=== PATIENT | female | born 1960 | race Caucasian/White ===

== ENCOUNTER 2018-03-19 12:44 | Inpatient (IN) | payer MEDICARE, MEDICAID ==
[2018-03-19] MEDS ORDERED: Ondansetron 4 MG Tab.DIS PO PRN (13:34)
[2018-03-19] MEDS ORDERED: Sodium Chloride 0.9% 10 ML Syringe FLUSH PRN (13:34)
[2018-03-19] MEDS ORDERED: LORazepam 1 MG Tab PO PRN (13:42)
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
[2018-03-19] MEDS: Piperacillin/Tazobactam/Dext 3.375 GM in Premix Bag 1 BAG IV SCH ×2 (14:39→19:22)
[2018-03-19] MEDS: Nicotine 14 MG/24 Hr Patch TRDERM SCH (14:45)
[2018-03-19] MEDS: Gabapentin 300 MG Cap PO SCH ×2 (14:46→21:21)
[2018-03-19] MEDS: Sodium Chloride 0.9% 1,000 ML IV SCH ×2 (14:49→23:39)
[2018-03-19] MEDS: oxyCODONE 5 MG Tab PO PRN ×3 (14:56→23:44)
[2018-03-19] MEDS: Pantoprazole 40 MG Tab.CR PO SCH (16:08)
[2018-03-19] MEDS: Methocarbamol 500 MG Tab PO SCH ×2 (16:08→21:21)
[2018-03-20] MEDS: Piperacillin/Tazobactam/Dext 3.375 GM in Premix Bag 1 BAG IV SCH ×4 (03:02→19:43)
[2018-03-20] MEDS: oxyCODONE 5 MG Tab PO PRN ×4 (04:24→19:45)
[2018-03-20] MEDS: Methocarbamol 500 MG Tab PO SCH ×4 (06:18→22:01)
[2018-03-20] MEDS: Sodium Chloride 0.9% 1,000 ML IV SCH ×2 (07:57→19:44)
[2018-03-20] MEDS: Pantoprazole 40 MG Tab.CR PO SCH ×2 (07:59→17:35)
[2018-03-20] MEDS: Nicotine 14 MG/24 Hr Patch TRDERM SCH (07:59)
[2018-03-20] MEDS: Thiamine 100 MG Tab PO SCH (08:00)
[2018-03-20] MEDS: Gabapentin 300 MG Cap PO SCH ×3 (08:00→22:01)
[2018-03-20] MEDS: Magnesium Sulfate/Water 2 GM in Premix Bag 1 BAG IV SCH ×2 (10:25→17:34)
--- NOTE | 2018-03-20 10:51 | PCM.PN ---
- General Info Date of Service: 03/20/18 Subjective Update: there were no acute events overnight following admission. Patient continues to report mild to moderate generalized abdominal pain. She had some low-grade fevers. She has not been passing much urine with catheterization. Urine continues to be dark. Urine culture is growing a gram-negative khadra. She reports an episode of black stool yesterday. Hepatic panel numbers have improved from yesterday. Functional Status: Reports: Pain Controlled - Patient Data Vitals - Most Recent: Last Vital Signs Temp 37.3 C 03/20/18 07:32 Pulse 86 03/20/18 07:32 Resp 16 03/20/18 07:32 BP 126/67 03/20/18 07:32 Pulse Ox 96 03/20/18 07:32 Weight - Most Recent: 73.085 kg I&O - Last 24 Hours: Intake & Output 03/19/18 03/20/18 03/20/18 22:59 06:59 14:59 Intake Total 1665 1519 Balance 1665 1519 Lab Results Last 24 Hours: Laboratory Results - last 24 hr 03/20/18 03/20/18 Range/Units 05:29 05:29 WBC 3.4 L (4.5-11.0) K/uL RBC 2.70 L (3.30-5.50) M/uL Hgb 9.0 L (12.0-15.0) g/dL Hct 28.4 L (36.0-48.0) % MCV 105 H (80-98) fL MCH 33 H (27-31) pg MCHC 32 (32-36) % Plt Count 70 L (150-400) K/uL Sodium 137 L (140-148) mmol/L Potassium 3.8 (3.6-5.2) mmol/L Chloride 104 (100-108) mmol/L Carbon Dioxide 24 (21-32) mmol/L Anion Gap 12.8 (5.0-14.0) mmol/L BUN 10 (7-18) mg/dL Creatinine 1.6 H (0.6-1.0) mg/dL Est Cr Clr Drug Dosing 36.75 mL/min Estimated GFR (MDRD) 33 L (>60) Glucose 116 H (74-106) mg/dL Calcium 8.3 L (8.5-10.1) mg/dL Magnesium 1.6 L (1.8-2.4) mg/dL Total Bilirubin 1.9 H D (0.2-1.0) mg/dL AST 76 H D (15-37) U/L ALT 36 D (12-78) U/L Alkaline Phosphatase 360 H D (46-116) U/L Total Protein 6.2 L (6.4-8.2) g/dL Albumin 1.8 L (3.4-5.0) g/dL Globulin 4.4 H (2.3-3.5) g/dL Albumin/Globulin Ratio 0.4 L (1.2-2.2) Ry Results Last 24 Hours: Microbiology 03/19/18 17:00 Urine Culture - Preliminary Urine, Catheterized Med Orders - Current: Current Medications Acetaminophen (Tylenol) 650 mg PO Q4H PRN PRN Reason: Pain (Mild 1-3)/fever Gabapentin (Neurontin) 600 mg PO TID [facility] Last Admin: 03/20/18 08:00 Dose: 600 mg Piperacillin/Tazobactam/ (Dextrose 3.375 gm/ Premix) 50 mls @ 100 mls/hr IV Q6H [facility] Last Admin: 03/20/18 08:20 Dose: 100 mls/hr Sodium Chloride (Normal Saline) 1,000 mls @ 125 mls/hr IV ASDIRECTED [facility] Last Admin: 03/20/18 07:57 Dose: 125 mls/hr Magnesium Sulfate 2 gm/ Premix 50 mls @ 25 mls/hr IV Q6H [facility] Stop: 03/20/18 17:59 Last Admin: 03/20/18 10:25 Dose: 25 mls/hr Lorazepam (Ativan) 1 mg PO BEDTIME PRN PRN Reason: Anxiety Methocarbamol (Robaxin) 500 mg PO QID [facility] Last Admin: 03/20/18 10:25 Dose: 500 mg Nicotine (Habitrol) 14 mg TRDERM DAILY [facility] Last Admin: 03/20/18 07:59 Dose: 14 mg Ondansetron HCl (Zofran Odt) 4 mg PO Q6H PRN PRN Reason: Nausea able to take PO Oxycodone HCl (Oxycodone) 5 mg PO Q4H PRN PRN Reason: Pain (moderate 4-6) Last Admin: 03/20/18 08:20 Dose: 5 mg Pantoprazole Sodium (Protonix) 40 mg PO BIDAC [facility] Last Admin: 03/20/18 07:59 Dose: 40 mg Sodium Chloride (Saline Flush) 10 ml FLUSH ASDIRECTED PRN PRN Reason: Keep Vein Open Thiamine HCl (Vitamin B-1) 100 mg PO DAILY [facility] Last Admin: 03/20/18 08:00 Dose: 100 mg - Exam Quality Assessment: No: Supplemental Oxygen General: Alert, Oriented, Cooperative, No Acute Distress Lungs: Normal Respiratory Effort Cardiovascular: Regular Rate, Regular Rhythm GI/Abdominal Exam: Soft, No Distention, Tender Extremities: No Pedal Edema Psy/Mental Status: Alert, Normal Affect - Problem List & Annotations (1) Complicated urinary tract infection SNOMED Code(s): 44562110 Code(s): N39.0 - URINARY TRACT INFECTION, SITE NOT SPECIFIED Status: Acute Current Visit: Yes (2) Neurogenic bladder SNOMED Code(s): 956229752 Code(s): N31.9 - NEUROMUSCULAR DYSFUNCTION OF BLADDER, UNSPECIFIED Status: Chronic Current Visit: Yes (3) CKD (chronic kidney disease), stage III SNOMED Code(s): 675143701 Code(s): N18.3 - CHRONIC KIDNEY DISEASE, STAGE 3 (MODERATE) Status: Chronic Current Visit: Yes (4) Chronic pain syndrome SNOMED Code(s): 248859272 Code(s): G89.4 - CHRONIC PAIN SYNDROME Status: Chronic Current Visit: No (5) Tobacco dependence SNOMED Code(s): 07247413 Code(s): F17.200 - NICOTINE DEPENDENCE, UNSPECIFIED, UNCOMPLICATED Status: Chronic Current Visit: No (6) Bariatric surgery status SNOMED Code(s): 659749492, 976754453, 271732601 Code(s): Z98.84 - BARIATRIC SURGERY STATUS Status: Chronic Current Visit : No - Problem List Review Problem List Initiated/Reviewed/Updated: Yes - My Orders Last 24 Hours: My Active Orders 03/19/18 13:34 Patient Status [ADT] Routine Oxygen Therapy [RC] PRN Up ad Fartun [RC] ASDIRECTED VTE/DVT Education [RC] Per Unit Routine Vital Signs [RC] Q4H Acetaminophen [Tylenol] 650 mg PO Q4H PRN Ondansetron [Zofran ODT] 4 mg PO Q6H PRN Sodium Chloride 0.9% [Saline Flush] 10 ml FLUSH ASDIRECTED PRN oxyCODONE 5 mg PO Q4H PRN Peripheral IV Insertion Adult [OM.PC] Routine VTE Pharmacological Contraindications [AST] Per Unit Routine Resuscitation Status Routine 03/19/18 13:35 Intake and Output [RC] QSHIFT Notify Provider Vital Signs [RC] ASDIRECTED 03/19/18 13:36 Sequential Compression Device [OM.PC] Per Unit Routine 03/19/18 13:37 Peripheral IV Care [RC] . DIRECTED 03/19/18 13:42 LORazepam [Ativan] 1 mg PO BEDTIME PRN 03/19/18 13:45 Sodium Chloride 0.9% [Normal Saline] 1,000 ml IV ASDIRECTED 03/19/18 14:00 Gabapentin [Neurontin] 600 mg PO TID Nicotine [Habitrol] 14 mg TRDERM DAILY Piperacillin/Tazobactam/Dext [Zosyn in Dextrose Iso-Osmotic 3.375 GM] 3.375 gm Premix Bag 1 bag IV Q6H 03/19/18 16:00 Methocarbamol [Robaxin] 500 mg PO QID 03/19/18 16:30 Pantoprazole [ProTONIX] 40 mg PO BIDAC 03/19/18 17:00 CULTURE URINE [RM] Routine 03/19/18 Dinner Regular Diet [DIET] 03/20/18 09:00 Thiamine [Vitamin B-1] 100 mg PO DAILY 03/20/18 10:00 Magnesium Sulfate/Water [Magnesium Sulfate 2 GM in Water 50 ML] 2 gm Premix Bag 1 bag IV Q6H 03/20/18 10:47 FERRITIN [CHEM] Routine IRON/TIBC [CHEM] Routine 03/20/18 11:00 Sodium Chloride 0.9% [Normal Saline] 1,000 ml IV ASDIRECTED 03/21/18 05:00 BASIC METABOLIC PANEL,BMP [CHEM] Timed CBC W/O DIFF,HEMOGRAM [HEME] Timed (1) - Plan Plan:: ASSESSMENT AND PLAN - Complicated urinary tract infection - history of neurogenic bladder requiring scheduled straight catheterizations. low-grade fevers overnight. Urine culture growing a gram-negative rods with identification pending. No evidence for sepsis. -Pip/Tazo -Urine culture -Gentle IV fluids -Pain control -continue scheduled straight catheterization Elevated bilirubin with ascites - CT scan showed a fatty liver but I suspect there may be a component of cirrhosis with ascites and abnormal liver functions. I don't believe these are an acute change in probably have slowly worsened over the past year since they were last checked. She has thrombocytopenia which could be related to chronic liver disease. I have a strong suspicion this is either related to fatty liver disease versus previous heavy alcohol use versus both. -iron level and ferritin to further evaluate anemia -Right upper quadrant ultrasound once pain has improved, maybe tomorrow -Repeat labs in the morning Stage III chronic kidney disease - solitary left kidney after right kidney was removed because of severe infection. -continue IV fluids and repeat labs in the morning Chronic pain syndrome - current home regimen is not controlling pain efficiently. -Oxycodone for moderate pain -Acetaminophen for mild pain -Continue other home medications Tobacco dependence - patient is interested in a nicotine patch. -Encourage cessation -Nicotine patch Maintenance issues - - DVT prophylaxis - mechanical with thrombocytopenia - GI prophylaxis - twice daily proton pump inhibitor - Nutrition - regular diet with soft and bland food choices - Bhat catheter - patient will self catheter several times daily Disposition - I would anticipate discharge to home after the hospital stay Peyman Ybarra M.D.
[2018-03-20] MEDS ORDERED: Sodium Ferric Gluconate Cmplex 250 MG in Sodium Chloride 0.9% 100 ML IV ONE (13:00)
[2018-03-20] MEDS: Acetaminophen 325 MG Tab PO PRN (19:45)
[2018-03-20] MEDS: Melatonin 3 MG Tab PO SCH (22:01)
[2018-03-21] MEDS: Acetaminophen 325 MG Tab PO PRN (02:04)
[2018-03-21] MEDS: oxyCODONE 5 MG Tab PO PRN ×5 (02:04→23:53)
[2018-03-21] MEDS: Piperacillin/Tazobactam/Dext 3.375 GM in Premix Bag 1 BAG IV SCH ×3 (02:04→13:30)
[2018-03-21] MEDS: Methocarbamol 500 MG Tab PO SCH ×4 (05:32→21:10)
[2018-03-21] MEDS: Sodium Chloride 0.9% 1,000 ML IV SCH ×2 (05:33→17:03)
[2018-03-21] MEDS: Pantoprazole 40 MG Tab.CR PO SCH ×2 (07:22→15:29)
[2018-03-21] MEDS: Nicotine 14 MG/24 Hr Patch TRDERM SCH (09:09)
[2018-03-21] MEDS: Gabapentin 300 MG Cap PO SCH ×3 (09:10→21:10)
[2018-03-21] MEDS: Thiamine 100 MG Tab PO SCH (09:10)
--- NOTE | 2018-03-21 12:05 | PCM.PN ---
- General Info Date of Service: 03/21/18 Subjective Update: There were no acute events overnight. The patient continues to endorse generalized abdominal pain which is slightly better than yesterday. She did not have any fevers overnight. She has some nausea this morning. No complaints of shortness of breath. She is fatigued. Urine culture grew out Klebsiella which was pansensitive. Functional Status: Reports: Pain Controlled, Tolerating Diet - Review of Systems General: Reports: Fever Gastrointestinal: Reports: Abdominal Pain, Nausea - Patient Data Vitals - Most Recent: Last Vital Signs Temp 36.4 C 03/21/18 10:48 Pulse 81 03/21/18 10:48 Resp 16 03/21/18 10:48 BP 123/63 03/21/18 10:48 Pulse Ox 97 03/21/18 10:48 Weight - Most Recent: 73.085 kg I&O - Last 24 Hours: Intake & Output 03/20/18 03/21/18 03/21/18 22:59 06:59 14:59 Intake Total 1170 2159 Balance 1170 2159 Lab Results Last 24 Hours: Laboratory Results - last 24 hr 03/21/18 03/21/18 Range/Units 05:38 05:38 WBC 3.3 L (4.5-11.0) K/uL RBC 2.57 L (3.30-5.50) M/uL Hgb 8.7 L (12.0-15.0) g/dL Hct 27.1 L (36.0-48.0) % MCV 105 H (80-98) fL MCH 34 H (27-31) pg MCHC 32 (32-36) % Plt Count 64 L (150-400) K/uL Sodium 136 L (140-148) mmol/L Potassium 3.1 L (3.6-5.2) mmol/L Chloride 102 (100-108) mmol/L Carbon Dioxide 25 (21-32) mmol/L Anion Gap 12.1 (5.0-14.0) mmol/L BUN 9 (7-18) mg/dL Creatinine 1.5 H (0.6-1.0) mg/dL Est Cr Clr Drug Dosing 39.20 mL/min Estimated GFR (MDRD) 36 L (>60) Glucose 93 (74-106) mg/dL Calcium 7.9 L (8.5-10.1) mg/dL Ry Results Last 24 Hours: Microbiology 03/19/18 17:00 Urine Culture - Final Urine, Catheterized Klebsiella Pneumonia Ss Pneumo Med Orders - Current: Current Medications Acetaminophen (Tylenol) 650 mg PO Q4H PRN PRN Reason: Pain (Mild 1-3)/fever Last Admin: 03/21/18 02:04 Dose: 650 mg Cephalexin (Keflex) 500 mg PO BID [facility] Gabapentin (Neurontin) 600 mg PO TID [facility] Last Admin: 03/21/18 09:10 Dose: 600 mg Piperacillin/Tazobactam/ (Dextrose 3.375 gm/ Premix) 50 mls @ 100 mls/hr IV Q6H [facility] Stop: 03/21/18 16:00 Last Admin: 03/21/18 07:22 Dose: 100 mls/hr Sodium Chloride (Normal Saline) 1,000 mls @ 100 mls/hr IV ASDIRECTED [facility] Last Admin: 03/21/18 05:33 Dose: 100 mls/hr Potassium Chloride 20 meq/Lidocaine HCl 2 ml/ Sodium Chloride 112 mls @ 50 mls/ hr IV Q2H [facility] Stop: 03/21/18 16:14 Lorazepam (Ativan) 1 mg PO BEDTIME PRN PRN Reason: Anxiety Melatonin (Melatonin) 9 mg PO BEDTIME [facility] Last Admin: 03/20/18 22:01 Dose: Not Given Methocarbamol (Robaxin) 500 mg PO QID [facility] Last Admin: 03/21/18 09:10 Dose: 500 mg Nicotine (Habitrol) 14 mg TRDERM DAILY [facility] Last Admin: 03/21/18 09:09 Dose: 14 mg Ondansetron HCl (Zofran Odt) 4 mg PO Q6H PRN PRN Reason: Nausea able to take PO Oxycodone HCl (Oxycodone) 5 mg PO Q4H PRN PRN Reason: Pain (moderate 4-6) Last Admin: 03/21/18 07:24 Dose: 5 mg Pantoprazole Sodium (Protonix) 40 mg PO BIDAC [facility] Last Admin: 03/21/18 07:22 Dose: 40 mg Sodium Chloride (Saline Flush) 10 ml FLUSH ASDIRECTED PRN PRN Reason: Keep Vein Open Thiamine HCl (Vitamin B-1) 100 mg PO DAILY [facility] Last Admin: 03/21/18 09:10 Dose: 100 mg Discontinued Medications Sodium Chloride (Normal Saline) 1,000 mls @ 125 mls/hr IV ASDIRECTED [facility] Last Admin: 03/20/18 07:57 Dose: 125 mls/hr Magnesium Sulfate 2 gm/ Premix 50 mls @ 25 mls/hr IV Q6H [facility] Stop: 03/20/18 17:59 Last Admin: 03/20/18 17:34 Dose: 25 mls/hr Ferric Sodium Gluconate Complex 250 mg/ Sodium Chloride 120 mls @ 50 mls/hr IV ONETIME ONE Stop: 03/20/18 15:23 Last Admin: 03/20/18 13:16 Dose: 50 mls/hr - Exam Quality Assessment: No: Supplemental Oxygen General: Alert, Oriented, Cooperative, No Acute Distress Lungs: Normal Respiratory Effort Cardiovascular: Regular Rate, Regular Rhythm GI/Abdominal Exam: Soft, Distended, Tender Extremities: No Pedal Edema Skin: Warm, Dry Psy/Mental Status: Alert, Normal Affect - Problem List & Annotations (1) Complicated urinary tract infection SNOMED Code(s): 96361277 Code(s): N39.0 - URINARY TRACT INFECTION, SITE NOT SPECIFIED Status: Acute Current Visit: Yes (2) Neurogenic bladder SNOMED Code(s): 894867544 Code(s): N31.9 - NEUROMUSCULAR DYSFUNCTION OF BLADDER, UNSPECIFIED Status: Chronic Current Visit: Yes (3) CKD (chronic kidney disease), stage III SNOMED Code(s): 684644649 Code(s): N18.3 - CHRONIC KIDNEY DISEASE, STAGE 3 (MODERATE) Status: Chronic Current Visit: Yes (4) Chronic pain syndrome SNOMED Code(s): 354911488 Code(s): G89.4 - CHRONIC PAIN SYNDROME Status: Chronic Current Visit: No (5) Tobacco dependence SNOMED Code(s): 12956282 Code(s): F17.200 - NICOTINE DEPENDENCE, UNSPECIFIED, UNCOMPLICATED Status: Chronic Current Visit: No (6) Bariatric surgery status SNOMED Code(s): 429932220, 867599128, 846985773 Code(s): Z98.84 - BARIATRIC SURGERY STATUS Status: Chronic Current Visit : No - Problem List Review Problem List Initiated/Reviewed/Updated: Yes - My Orders Last 24 Hours: My Active Orders 03/20/18 21:00 Melatonin 9 mg PO BEDTIME 03/21/18 12:03 Dietary Supplements [RC] BIDMEALS 03/21/18 12:15 Potassium Chloride 20 MEQ,Lidocaine 1% 2 ML IN 100ML NS @ 50 MLS/HR Potassium Chloride 20 meq Lidocaine 1% [Xylocaine 1%] 2 ml Sodium Chloride 0.9% [Normal Saline] 100 ml IV Q2H 03/21/18 21:00 cephALEXin [Keflex] 500 mg PO BID 03/22/18 05:00 CBC W/O DIFF,HEMOGRAM [HEME] Timed (1) COMPREHENSIVE METABOLIC PN,CMP [CHEM] Timed - Plan Plan:: ASSESSMENT AND PLAN - Complicated urinary tract infection - history of neurogenic bladder requiring scheduled straight catheterizations. Temperature curve improving. Urine culture grew out Klebsiella. She still does not have a great urine output and I plan to continue IV fluids at least through the day if not overnight. -Change antibiotics to cephalexin -Urine culture -Gentle IV fluids -Pain control -continue scheduled straight catheterization Elevated bilirubin with ascites - CT scan showed a fatty liver but I suspect there may be a component of cirrhosis with ascites and abnormal liver functions. I don't believe these are an acute change in probably have slowly worsened over the past year since they were last checked. She has thrombocytopenia which could be related to chronic liver disease. I have a strong suspicion this is either related to fatty liver disease versus previous heavy alcohol use versus both. Hepatic panel Levels have been trending down. She did have a low iron and received iron replacement yesterday. Still a little bit too tender in the abdomen to be able to tolerate the ultrasound. -Repeat labs in the morning -Right upper quadrant ultrasound once pain has improved, maybe tomorrow Stage III chronic kidney disease - solitary left kidney after right kidney was removed because of severe infection. Creatinine level bumped slightly from admission but is now starting to trend down. -continue IV fluids and repeat labs in the morning Chronic pain syndrome - pain control acceptable at this time. -Oxycodone for moderate pain -Acetaminophen for mild pain -Continue other home medications Tobacco dependence - patient is interested in a nicotine patch. -Encourage cessation -Nicotine patch Maintenance issues - - DVT prophylaxis - mechanical with thrombocytopenia - GI prophylaxis - twice daily proton pump inhibitor - Nutrition - regular diet with soft and bland food choices - Bhat catheter - patient will self catheter several times daily Disposition - I would anticipate discharge to home after the hospital stay Peyman Ybarra M.D.
[2018-03-21] MEDS: Potassium Chloride 20 MEQ, Lidocaine 1% 2 ML in Sodium Chloride 0.9% 100 ML IV SCH ×2 (14:08→16:59)
[2018-03-21] MEDS: Melatonin 3 MG Tab PO SCH (21:10)
[2018-03-21] MEDS: Cephalexin 250 MG Cap PO SCH (21:10)
[2018-03-22] MEDS: Sodium Chloride 0.9% 1,000 ML IV SCH (02:39)
[2018-03-22] MEDS: oxyCODONE 5 MG Tab PO PRN ×4 (04:10→20:41)
[2018-03-22] MEDS: Methocarbamol 500 MG Tab PO SCH ×4 (06:00→21:33)
[2018-03-22] MEDS: Pantoprazole 40 MG Tab.CR PO SCH ×2 (07:23→16:07)
[2018-03-22] MEDS ORDERED: Polyethylene Glycol 3350 Powder 17 GM Packet PO PRN (07:36)
[2018-03-22] MEDS: Nicotine 14 MG/24 Hr Patch TRDERM SCH (09:08)
[2018-03-22] MEDS: Gabapentin 300 MG Cap PO SCH ×3 (09:08→20:43)
[2018-03-22] MEDS: Thiamine 100 MG Tab PO SCH (09:09)
[2018-03-22] MEDS: Cephalexin 250 MG Cap PO SCH ×2 (09:09→20:44)
[2018-03-22] MEDS ORDERED: Furosemide 40 MG/4 ML VIAL IVPUSH ONE (13:04)
--- NOTE | 2018-03-22 13:10 | PCM.PN ---
- General Info Date of Service: 03/22/18 Subjective Update: Ms. Elizabeth continues to report symptoms of abdominal discomfort across the lower abdomen. In addition has noted swelling of both thighs. IV fluids were discontinued this morning. Vital signs have been stable and she has remained afebrile. Currently treated with oral antibiotic therapy for her complicated urinary tract infection with pyelonephritis. - Review of Systems General: Reports: Weakness. Denies: Fever, Chills Pulmonary: Reports: No Symptoms Cardiovascular: Reports: No Symptoms Gastrointestinal: Reports: Abdominal Pain, Diarrhea. Denies: Difficulty Swallowing, Hematochezia, Melena, Nausea, Vomiting Genitourinary: Reports: No Symptoms - Patient Data Vitals - Most Recent: Last Vital Signs Temp 98.6 F 03/22/18 11:00 Pulse 84 03/22/18 11:00 Resp 18 03/22/18 11:00 BP 136/76 03/22/18 11:00 Pulse Ox 98 03/22/18 11:00 Weight - Most Recent: 161 lb 1.997 oz I&O - Last 24 Hours: Intake & Output 03/21/18 03/22/18 03/22/18 22:59 06:59 14:59 Intake Total 990 1714 1324 Balance 990 1714 1324 Lab Results Last 24 Hours: Laboratory Results - last 24 hr 03/22/18 03/22/18 Range/Units 05:00 05:00 WBC 3.2 L (4.5-11.0) K/uL RBC 2.51 L (3.30-5.50) M/uL Hgb 8.5 L (12.0-15.0) g/dL Hct 26.7 L (36.0-48.0) % MCV 106 H (80-98) fL MCH 34 H (27-31) pg MCHC 32 (32-36) % Plt Count 73 L (150-400) K/uL Sodium 138 L (140-148) mmol/L Potassium 3.6 (3.6-5.2) mmol/L Chloride 106 (100-108) mmol/L Carbon Dioxide 25 (21-32) mmol/L Anion Gap 10.6 (5.0-14.0) mmol/L BUN 6 L (7-18) mg/dL Creatinine 1.6 H (0.6-1.0) mg/dL Est Cr Clr Drug Dosing 36.75 mL/min Estimated GFR (MDRD) 33 L (>60) Glucose 109 H (74-106) mg/dL Calcium 7.6 L (8.5-10.1) mg/dL Total Bilirubin 1.4 H (0.2-1.0) mg/dL AST 86 H (15-37) U/L ALT 32 (12-78) U/L Alkaline Phosphatase 291 H (46-116) U/L Total Protein 5.7 L (6.4-8.2) g/dL Albumin 1.6 L (3.4-5.0) g/dL Globulin 4.1 H (2.3-3.5) g/dL Albumin/Globulin Ratio 0.4 L (1.2-2.2) Med Orders - Current: Current Medications Acetaminophen (Tylenol) 650 mg PO Q4H PRN PRN Reason: Pain (Mild 1-3)/fever Last Admin: 03/21/18 02:04 Dose: 650 mg Cephalexin (Keflex) 500 mg PO BID [facility] Last Admin: 03/22/18 09:09 Dose: 500 mg Gabapentin (Neurontin) 600 mg PO TID [facility] Last Admin: 03/22/18 09:08 Dose: 600 mg Lorazepam (Ativan) 1 mg PO BEDTIME PRN PRN Reason: Anxiety Melatonin (Melatonin) 9 mg PO BEDTIME [facility] Last Admin: 03/21/18 21:10 Dose: 9 mg Methocarbamol (Robaxin) 500 mg PO QID [facility] Last Admin: 03/22/18 09:09 Dose: 500 mg Nicotine (Habitrol) 14 mg TRDERM DAILY [facility] Last Admin: 03/22/18 09:08 Dose: 14 mg Ondansetron HCl (Zofran Odt) 4 mg PO Q6H PRN PRN Reason: Nausea able to take PO Oxycodone HCl (Oxycodone) 5 mg PO Q4H PRN PRN Reason: Pain (moderate 4-6) Last Admin: 03/22/18 10:40 Dose: 5 mg Pantoprazole Sodium (Protonix) 40 mg PO BIDAC [facility] Last Admin: 03/22/18 07:23 Dose: 40 mg Polyethylene Glycol (Miralax) 17 gm PO TID PRN PRN Reason: Constipation Last Admin: 03/22/18 09:08 Dose: 17 gm Sodium Chloride (Saline Flush) 10 ml FLUSH ASDIRECTED PRN PRN Reason: Keep Vein Open Thiamine HCl (Vitamin B-1) 100 mg PO DAILY [facility] Last Admin: 03/22/18 09:09 Dose: 100 mg Discontinued Medications Piperacillin/Tazobactam/ (Dextrose 3.375 gm/ Premix) 50 mls @ 100 mls/hr IV Q6H [facility] Stop: 03/21/18 16:00 Last Admin: 03/21/18 13:30 Dose: 100 mls/hr Sodium Chloride (Normal Saline) 1,000 mls @ 125 mls/hr IV ASDIRECTED [facility] Last Admin: 03/20/18 07:57 Dose: 125 mls/hr Magnesium Sulfate 2 gm/ Premix 50 mls @ 25 mls/hr IV Q6H [facility] Stop: 03/20/18 17:59 Last Admin: 03/20/18 17:34 Dose: 25 mls/hr Sodium Chloride (Normal Saline) 1,000 mls @ 100 mls/hr IV ASDIRECTED [facility] Last Admin: 03/22/18 02:39 Dose: 100 mls/hr Ferric Sodium Gluconate Complex 250 mg/ Sodium Chloride 120 mls @ 50 mls/hr IV ONETIME ONE Stop: 03/20/18 15:23 Last Admin: 03/20/18 13:16 Dose: 50 mls/hr Potassium Chloride 20 meq/Lidocaine HCl 2 ml/ Sodium Chloride 112 mls @ 50 mls/ hr IV Q2H [facility] Stop: 03/21/18 16:59 Last Admin: 03/21/18 16:59 Dose: 50 mls/hr - Exam Quality Assessment: DVT Prophylaxis General: Alert, Oriented, Cooperative, Mild Distress Lungs: Clear to Auscultation, Normal Respiratory Effort Cardiovascular: Regular Rate, Regular Rhythm, No Murmurs GI/Abdominal Exam: Soft, Non-Tender, No Organomegaly, No Distention Extremities: Non-Tender, Pedal Edema - Problem List Review Problem List Initiated/Reviewed/Updated: Yes - My Orders Last 24 Hours: My Active Orders 03/22/18 11:40 Convert IV to Saline Lock [OM.PC] Routine 03/22/18 12:43 Convert IV to Saline Lock [OM.PC] Routine 03/22/18 12:44 Abdomen Pelvis wo Cont [CT] Stat 03/22/18 13:04 Furosemide [Lasix] 40 mg IVPUSH NOW ONE 03/22/18 13:15 Spironolactone [Aldactone] 25 mg PO BID - Plan Plan:: ASSESSMENT AND PLAN - Complicated urinary tract infection - history of neurogenic bladder requiring scheduled straight catheterizations. Temperature curve improved. Urine culture grew out Klebsiella. -Change antibiotics to cephalexin -Daily and lock IV -Pain control -continue scheduled straight catheterization Elevated bilirubin with ascites - persistent abdominal pain -CT scan of abdomen and pelvis to reassess for underlying etiology of pain -Furosemide 40 mg IV now -Spiroolactone 25 mg by mouth twice a day -Repeat labs in the morning -Right upper quadrant ultrasound once pain has improved, maybe tomorrow Stage III chronic kidney disease - solitary left kidney after right kidney was removed because of severe infection. -repeat labs in the morning Chronic pain syndrome - pain control acceptable at this time. -Oxycodone for moderate pain -Acetaminophen for mild pain -Continue other home medications Tobacco dependence - patient is interested in a nicotine patch. -Encourage cessation -Nicotine patch Maintenance issues - - DVT prophylaxis - mechanical with thrombocytopenia - GI prophylaxis - twice daily proton pump inhibitor - Nutrition - regular diet with soft and bland food choices - Bhat catheter - patient will self catheter several times daily Disposition - I would anticipate discharge to home after the hospital stay
[2018-03-22] MEDS: Spironolactone 25 MG Tab PO SCH ×2 (13:39→20:44)
[2018-03-22] MEDS: Melatonin 3 MG Tab PO SCH (21:34)
[2018-03-23] MEDS: oxyCODONE 5 MG Tab PO PRN ×5 (01:59→22:26)
[2018-03-23] MEDS: Methocarbamol 500 MG Tab PO SCH ×4 (05:55→22:26)
[2018-03-23] MEDS: Pantoprazole 40 MG Tab.CR PO SCH ×2 (07:21→16:10)
[2018-03-23] MEDS ORDERED: Gadoteridol 279.3 MG/ML 15 ML SDV IV SCH (11:00)
[2018-03-23] MEDS ORDERED: Furosemide 40 MG/4 ML VIAL IVPUSH ONE ×2 (13:00→16:15)
[2018-03-23] MEDS ORDERED: LORazepam 2 MG/ML SDV IVPUSH ONE (13:33)
[2018-03-23] MEDS: Cephalexin 250 MG Cap PO SCH ×2 (16:10→22:26)
[2018-03-23] MEDS: Spironolactone 25 MG Tab PO SCH ×2 (16:10→22:26)
[2018-03-23] MEDS: Gabapentin 300 MG Cap PO SCH ×3 (16:10→22:30)
[2018-03-23] MEDS: Nicotine 14 MG/24 Hr Patch TRDERM SCH (16:11)
[2018-03-23] MEDS: Thiamine 100 MG Tab PO SCH (16:11)
--- NOTE | 2018-03-23 17:43 | PCM.PN ---
- General Info Date of Service: 03/23/18 Subjective Update: Ms. Elizabeth has felt modestly improved over the past 24 hours with decreasing abdominal pain as well as distention. Continues to experience fullness and tightness of her thighs secondary to fluid overload although this also has improved since yesterday with use of IV Lasix. MRCP has been obtained today for further evaluation of hepatic ductal dilatation, results are pending at the time of this dictation. - Review of Systems General: Reports: Weakness. Denies: Fever, Chills Pulmonary: Reports: No Symptoms Cardiovascular: Reports: No Symptoms Gastrointestinal: Reports: Abdominal Pain, Decreased Appetite. Denies: Difficulty Swallowing, Hematochezia, Melena, Nausea, Vomiting - Patient Data Vitals - Most Recent: Last Vital Signs Temp 98.7 F 03/23/18 15:00 Pulse 91 03/23/18 15:00 Resp 18 03/23/18 15:00 BP 154/86 H 03/23/18 15:00 Pulse Ox 100 03/23/18 15:00 Weight - Most Recent: 161 lb 1.997 oz I&O - Last 24 Hours: Intake & Output 03/23/18 03/23/18 03/23/18 06:59 14:59 22:59 Output Total 800 725 Balance -800 -725 Med Orders - Current: Current Medications Acetaminophen (Tylenol) 650 mg PO Q4H PRN PRN Reason: Pain (Mild 1-3)/fever Last Admin: 03/21/18 02:04 Dose: 650 mg Cephalexin (Keflex) 500 mg PO BID [facility] Last Admin: 03/23/18 16:10 Dose: 500 mg Gabapentin (Neurontin) 600 mg PO TID [facility] Last Admin: 03/23/18 16:11 Dose: Not Given Lorazepam (Ativan) 1 mg PO BEDTIME PRN PRN Reason: Anxiety Melatonin (Melatonin) 9 mg PO BEDTIME [facility] Last Admin: 03/22/18 21:34 Dose: Not Given Methocarbamol (Robaxin) 500 mg PO QID [facility] Last Admin: 03/23/18 16:20 Dose: Not Given Nicotine (Habitrol) 14 mg TRDERM DAILY [facility] Last Admin: 03/23/18 16:11 Dose: 14 mg Ondansetron HCl (Zofran Odt) 4 mg PO Q6H PRN PRN Reason: Nausea able to take PO Oxycodone HCl (Oxycodone) 5 mg PO Q4H PRN PRN Reason: Pain (moderate 4-6) Last Admin: 03/23/18 16:10 Dose: 5 mg [facility] Admin: 03/23/18 16:10 Dose: 40 mg Polyethylene Glycol (Miralax) 17 gm PO TID PRN PRN Reason: Constipation Last Admin: 03/22/18 09:08 Dose: 17 gm Sodium Chloride (Saline Flush) 10 ml FLUSH ASDIRECTED PRN PRN Reason: Keep Vein Open Spironolactone (Aldactone) 25 mg PO BID [facility] Last Admin: 03/23/18 16:10 Dose: 25 mg Thiamine HCl (Vitamin B-1) 100 mg PO DAILY [facility] Last Admin: 03/23/18 16:11 Dose: 100 mg Discontinued Medications Furosemide (Lasix) 40 mg IVPUSH NOW ONE Stop: 03/22/18 13:05 Last Admin: 03/22/18 13:35 Dose: 40 mg Furosemide (Lasix) 40 mg IVPUSH NOW ONE Stop: 03/23/18 16:16 Last Admin: 03/23/18 16:19 Dose: 40 mg Gadoteridol (Prohance) 15 ml IV .A DIRECTED [facility] Stop: 03/23/18 16:00 Piperacillin/Tazobactam/ (Dextrose 3.375 gm/ Premix) 50 mls @ 100 mls/hr IV Q6H [facility] Stop: 03/21/18 16:00 Last Admin: 03/21/18 13:30 Dose: 100 mls/hr Sodium Chloride (Normal Saline) 1,000 mls @ 125 mls/hr IV ASDIRECTED [facility] Last Admin: 03/20/18 07:57 Dose: 125 mls/hr Magnesium Sulfate 2 gm/ Premix 50 mls @ 25 mls/hr IV Q6H [facility] Stop: 03/20/18 17:59 Last Admin: 03/20/18 17:34 Dose: 25 mls/hr Sodium Chloride (Normal Saline) 1,000 mls @ 100 mls/hr IV ASDIRECTED [facility] Last Admin: 03/22/18 02:39 Dose: 100 mls/hr Ferric Sodium Gluconate Complex 250 mg/ Sodium Chloride 120 mls @ 50 mls/hr IV ONETIME ONE Stop: 03/20/18 15:23 Last Admin: 03/20/18 13:16 Dose: 50 mls/hr Potassium Chloride 20 meq/Lidocaine HCl 2 ml/ Sodium Chloride 112 mls @ 50 mls/ hr IV Q2H [facility] Stop: 03/21/18 16:59 Last Admin: 03/21/18 16:59 Dose: 50 mls/hr Lorazepam (Ativan) 0.5 mg IVPUSH ONETIME ONE Stop: 03/23/18 13:34 Last Admin: 03/23/18 14:16 Dose: 0.5 mg - Exam Quality Assessment: DVT Prophylaxis General: Alert, Oriented, Cooperative, Moderate Distress Lungs: Clear to Auscultation, Normal Respiratory Effort Cardiovascular: Regular Rate, Regular Rhythm, No Murmurs GI/Abdominal Exam: Soft, No Organomegaly, Distended, Tender. No: Guarding, Rigid, Rebound Extremities: Non-Tender, Pedal Edema - Problem List Review Problem List Initiated/Reviewed/Updated: Yes - My Orders Last 24 Hours: My Active Orders 03/23/18 08:00 Cholangiopancreatography [MR] Urgent 03/24/18 05:00 CBC WITH AUTO DIFF [HEME] Timed COMPREHENSIVE METABOLIC PN,CMP [CHEM] Timed - Plan Plan:: ASSESSMENT AND PLAN - Complicated urinary tract infection - history of neurogenic bladder requiring scheduled straight catheterizations. Temperature curve improved. Urine culture grew out Klebsiella. Abdominal/flank discomfort improved since yesterday but not resolved -Change antibiotics to cephalexin -Daily and lock IV -Pain control -continue scheduled straight catheterization Elevated bilirubin with ascites - persistent abdominal pain and thigh swelling, improved with diuretic therapy -MRCP results pending -Furosemide 40 mg IV today -Spiroolactone 25 mg by mouth twice a day -Repeat labs in the morning Stage III chronic kidney disease - solitary left kidney after right kidney was removed because of severe infection. Renal function has remained stable over the past 24 hours. -repeat labs in the morning Chronic pain syndrome - pain control acceptable at this time. -Oxycodone for moderate pain -Acetaminophen for mild pain -Continue other home medications Tobacco dependence - patient is interested in a nicotine patch. -Encourage cessation -Nicotine patch Maintenance issues - - DVT prophylaxis - mechanical with thrombocytopenia - GI prophylaxis - twice daily proton pump inhibitor - Nutrition - regular diet with soft and bland food choices - Bhat catheter - patient will self catheter several times daily Disposition - I would anticipate discharge to home after the hospital stay
[2018-03-23] MEDS: Melatonin 3 MG Tab PO SCH (22:28)
[2018-03-24] MEDS: oxyCODONE 5 MG Tab PO PRN ×3 (04:58→14:56)
[2018-03-24] MEDS: Methocarbamol 500 MG Tab PO SCH ×2 (04:59→09:10)
[2018-03-24] MEDS: Pantoprazole 40 MG Tab.CR PO SCH (07:20)
[2018-03-24] MEDS: Cephalexin 250 MG Cap PO SCH (09:09)
[2018-03-24] MEDS: Spironolactone 25 MG Tab PO SCH (09:09)
[2018-03-24] MEDS: Nicotine 14 MG/24 Hr Patch TRDERM SCH (09:09)
[2018-03-24] MEDS: Gabapentin 300 MG Cap PO SCH ×2 (09:09→15:03)
[2018-03-24] MEDS: Thiamine 100 MG Tab PO SCH (09:10)
--- NOTE | 2018-03-24 10:12 | MR ---
Cholangiopancreatography CLINICAL HISTORY: Increasing biliary dilatation, ascites COMPARISON: Recent current CT abdomen's TECHNIQUE: Multiple images of the biliary system were obtained. All images were obtained on a 1.5 Lizette Siemens unit. FINDINGS: There is hepatic steatosis. There is some mild intrahepatic biliary prominence. Patient is status post cholecystectomy. There is dilatation of the common bile duct now measuring approximately 2 cm in the upper portion. This tapers proximal to the ampulla. Its some soft tissue fullness at the ampulla is not excluded. There is moderate motion obscuring some detail. Patient has moderate ascites. There is also subcutaneous edema. Left kidney is hydronephrotic. The right kidney is absent. Spleen is enlarged at 14 cm length IMPRESSION: Hepatosplenomegaly with fatty infiltration of the liver Abdominal ascites. There is also some edema in the central subcutaneous tissues. This may represent anasarca. Previous cholecystectomy. Common bile duct dilatation has increased since prior CT scans. The distal duct tapers somewhat abruptly and there is some soft tissue fullness suggested near the ampulla. The resolution is limited here due to breathing motion and peristalsis. Ampullary lesion is not excluded. ERCP is a consideration Absent right kidney and left hydronephrosis
[2018-03-24 11:10] VITALS: BP 154/82
[2018-03-24] MEDS ORDERED: Lactobacillus Rhamnosus GG (Probiotic) Cap PO SCH (12:45)
--- NOTE | 2018-03-24 12:57 | PCM.DCSUM1 ---
Discharge Summary - Hospital Course Brief History: Ms. Elizabeth is a 57-year-old woman who was admitted as a direct admission from the clinic with abdominal pain, anorexia, and nausea. - Discharge Data Discharge Date: 03/24/18 Discharge Disposition: Home, Self-Care 01 Condition: Poor - Discharge Diagnosis/Problem(s) (1) Cirrhosis of liver SNOMED Code(s): 91653349 ICD Code: K74.60 - UNSPECIFIED CIRRHOSIS OF LIVER Status: Acute Current Visit: Yes (2) Common bile duct dilatation SNOMED Code(s): 053180151 ICD Code: K83.8 - OTHER SPECIFIED DISEASES OF BILIARY TRACT Status: Acute Current Visit: Yes (3) Complicated urinary tract infection SNOMED Code(s): 95648414 ICD Code: N39.0 - URINARY TRACT INFECTION, SITE NOT SPECIFIED Status: Acute Current Visit: Yes (4) CKD (chronic kidney disease), stage III SNOMED Code(s): 774343024 ICD Code: N18.3 - CHRONIC KIDNEY DISEASE, STAGE 3 (MODERATE) Status: Chronic Current Visit: Yes (5) Neurogenic bladder SNOMED Code(s): 439094295 ICD Code: N31.9 - NEUROMUSCULAR DYSFUNCTION OF BLADDER, UNSPECIFIED Status : Chronic Current Visit: Yes (6) History of alcohol abuse SNOMED Code(s): 895417858 ICD Code: Z87.898 - PERSONAL HISTORY OF OTHER SPECIFIED CONDITIONS Status: Chronic Current Visit: No - Patient Summary/Data Hospital Course: Roma initially presented to the clinic with 5 days of generalized abdominal pain, anorexia and intermittent diarrhea. She reports onset of symptoms after first noticing a very large urgent liquid bowel movement on Thursday, 5 days ago. She felt fairly well after this bowel movement but then slowly throughout the week has developed anorexia, slowly progressive abdominal pain as well as intermittent episodes of diarrhea. Abdominal pain is described as dull and achy. This spreads throughout her abdomen and gets worse when she tries to move around or puts pressure on her abdomen. Laying still helps the pain get better. She says that she has not taken anything outside of her usual medications to help with the pain. The pain does not radiate. She has never had pain quite like this before. Her diarrhea has not been consistent and she has had normal bowel movements in between episodes of diarrhea. Yesterday she had several episodes of incontinence diarrhea. None today. She has had chills but no fevers. No recent antibiotics. No sick contacts. No travel. No complaints of shortness of breath. This morning she did notice that her urine appeared very dark and cloudy and smelled unusual. Workup in the clinic revealed evidence for urinary tract infection on the urinalysis as well as a elevated bilirubin, alkaline phosphatase and mildly elevated AST. White count is normal. Hemoglobin and platelets are slightly low but at her baseline. A CT scan of the abdomen and pelvis did show some ascites and a fatty liver but no acute findings. On admission she was given IV fluids for hydration as well as pain medication and medication as needed for nausea. Antibiotic therapy was initiated after urine culture had been obtained. She was initially treated with Rocephin IV, urine culture did grow out pansensitive Klebsiella and she was transitioned to oral antibiotic therapy with cephalexin. Prior to transfer she had completed a course of antibiotic therapy. Despite management of urinary tract infection she continued to experience symptoms of abdominal pain that became more localized to the right upper quadrant. Appetite remained poor with poor oral intake. Was given IV diuretic therapy for management of ascites and edema in the buttocks and thighs. Bilirubin was elevated at 2.0 on admission and it improved to 1.5 by the time of transfer. Blood cell count remained in the 3000 range throughout hospitalization and she had no significant temperature elevations. Because of persistent abdominal discomfort CT scan of the abdomen was repeated on March 22. This showed increased ductal dilatation in the liver compared to the previous CT scan but there were no other acute findings or abnormalities. Because of the increased ductal dilatation MRCP was performed on March 23 and showed further increase in ductal dilatation compared to the previous scan as well as narrowing at the ampulla suggesting possible obstruction. She has a known history of chronic kidney disease stage III and is status post previous right nephrectomy. Renal function remained stable throughout hospitalization. With ongoing symptoms of abdominal discomfort and in addition the findings noted on MRCP decision was made pursue transfer for further subspecialty evaluation. She has been accepted in transfer by Dr. [facility] in [facility] and will be transferred via [facility]. - Patient Instructions Diet: Usual Diet as Tolerated Activity: As Tolerated Other/Special Instructions: Transferred to [facility] in [facility] via [facility]. - Discharge Plan *PRESCRIPTION DRUG MONITORING PROGRAM REVIEWED*: Not Applicable *COPY OF PRESCRIPTION DRUG MONITORING REPORT IN PATIENT CESAR: Not Applicable Home Medications: Home Meds Gabapentin [Neurontin] 600 mg PO TID 02/26/13 [History] Omeprazole [Prilosec] 40 mg PO BID #60 capsule. 03/03/13 [Rx] LORazepam [Ativan] 1 mg PO BEDTIME PRN 03/07/15 [History] Multivitamin with Minerals [Multiple Vitamin] 1 tab PO DAILY 03/07/15 [History] Thiamine [Vitamin B-1] 1 tab PO DAILY 03/07/15 [History] Cholecalciferol (Vitamin D3) [Vitamin D3] 1,000 unit PO DAILY 12/23/17 [History] Methocarbamol 500 mg PO QID 12/23/17 [History] Polyethylene Glycol 3350 [MiraLAX] 17 gm PO BID PRN 12/23/17 [History] Hydrocodone/Acetaminophen [Hydrocodon-Acetaminophn 10-325] 1 tab PO Q4H PRN #10 tablet 12/26/17 [Rx] Lactobacillus Rhamnosus GG [Culturelle] 1 cap PO BID cap 03/24/18 [Rx] - Discharge Summary/Plan Comment DC Time >30 min.: No - Patient Data Vitals - Most Recent: Last Vital Signs Temp 98.4 F 03/24/18 11:08 Pulse 82 03/24/18 11:08 Resp 16 03/24/18 11:08 BP 154/82 H 03/24/18 11:10 Pulse Ox 99 03/24/18 11:08 Weight - Most Recent: 161 lb 1.997 oz I&O - Last 24 hours: Intake & Output 03/23/18 03/24/18 03/24/18 22:59 06:59 14:59 Intake Total 800 Output Total 1750 700 Balance -1750 100 Lab Results - Last 24 hrs: Laboratory Results - last 24 hr 03/24/18 03/24/18 Range/Units 05:52 05:52 WBC 3.7 L (4.5-11.0) K/uL RBC 2.72 L (3.30-5.50) M/uL Hgb 9.2 L (12.0-15.0) g/dL Hct 28.6 L (36.0-48.0) % MCV 105 H (80-98) fL MCH 34 H (27-31) pg MCHC 32 (32-36) % Plt Count 98 L (150-400) K/uL Neut % (Auto) 56 (36-66) % Lymph % (Auto) 28 (24-44) % [place] % (Auto) 13 H (2-6) % Eos % (Auto) 2 (2-4) % Baso % (Auto) 2 H (0-1) % Sodium 141 (140-148) mmol/L Potassium 3.8 (3.6-5.2) mmol/L Chloride 108 (100-108) mmol/L Carbon Dioxide 26 (21-32) mmol/L Anion Gap 6.8 (5.0-14.0) mmol/L BUN 6 L (7-18) mg/dL Creatinine 1.5 H (0.6-1.0) mg/dL Est Cr Clr Drug Dosing 39.42 mL/min Estimated GFR (MDRD) 36 L (>60) Glucose 93 (74-106) mg/dL Calcium 8.3 L (8.5-10.1) mg/dL Total Bilirubin 1.5 H (0.2-1.0) mg/dL AST 84 H (15-37) U/L ALT 31 (12-78) U/L Alkaline Phosphatase 284 H (46-116) U/L Total Protein 6.1 L (6.4-8.2) g/dL Albumin 1.8 L (3.4-5.0) g/dL Globulin 4.3 H (2.3-3.5) g/dL Albumin/Globulin Ratio 0.4 L (1.2-2.2) Med Orders - Current: Current Medications Acetaminophen (Tylenol) 650 mg PO Q4H PRN PRN Reason: Pain (Mild 1-3)/fever Last Admin: 03/21/18 02:04 Dose: 650 mg Cephalexin (Keflex) 500 mg PO BID [facility] Last Admin: 03/24/18 09:09 Dose: 500 mg Furosemide (Lasix) 40 mg IVPUSH NOW ONE Stop: 03/24/18 12:28 Gabapentin (Neurontin) 600 mg PO TID [facility] Last Admin: 03/24/18 09:09 Dose: 600 mg Lactobacillus Rhamnosus (Culturelle) 1 cap PO BID [facility] Lorazepam (Ativan) 1 mg PO BEDTIME PRN PRN Reason: Anxiety Melatonin (Melatonin) 9 mg PO BEDTIME [facility] Last Admin: 03/23/18 22:28 Dose: Not Given Methocarbamol (Robaxin) 500 mg PO QID [facility] Last Admin: 03/24/18 09:10 Dose: 500 mg Nicotine (Habitrol) 14 mg TRDERM DAILY [facility] Last Admin: 03/24/18 09:09 Dose: 14 mg Ondansetron HCl (Zofran Odt) 4 mg PO Q6H PRN PRN Reason: Nausea able to take PO Oxycodone HCl (Oxycodone) 5 mg PO Q4H PRN PRN Reason: Pain (moderate 4-6) Last Admin: 03/24/18 09:08 Dose: 5 mg Pantoprazole Sodium (Protonix) 40 mg PO BIDAC [facility] Last Admin: 03/24/18 07:20 Dose: 40 mg Polyethylene Glycol (Miralax) 17 gm PO TID PRN PRN Reason: Constipation Last Admin: 03/22/18 09:08 Dose: 17 gm Sodium Chloride (Saline Flush) 10 ml FLUSH ASDIRECTED PRN PRN Reason: Keep Vein Open Spironolactone (Aldactone) 25 mg PO BID [facility] Last Admin: 03/24/18 09:09 Dose: 25 mg Thiamine HCl (Vitamin B-1) 100 mg PO DAILY [facility] Last Admin: 03/24/18 09:10 Dose: 100 mg Discontinued Medications Furosemide (Lasix) 40 mg IVPUSH NOW ONE Stop: 03/22/18 13:05 Last Admin: 03/22/18 13:35 Dose: 40 mg Furosemide (Lasix) 40 mg IVPUSH NOW ONE Stop: 03/23/18 16:16 Last Admin: 03/23/18 16:19 Dose: 40 mg Gadoteridol (Prohance) 15 ml IV .A DIRECTED [facility] Stop: 03/23/18 16:00 Piperacillin/Tazobactam/ (Dextrose 3.375 gm/ Premix) 50 mls @ 100 mls/hr IV Q6H [facility] Stop: 03/21/18 16:00 Last Admin: 03/21/18 13:30 Dose: 100 mls/hr Sodium Chloride (Normal Saline) 1,000 mls @ 125 mls/hr IV ASDIRECTED [facility] Last Admin: 03/20/18 07:57 Dose: 125 mls/hr Magnesium Sulfate 2 gm/ Premix 50 mls @ 25 mls/hr IV Q6H [facility] Stop: 03/20/18 17:59 Last Admin: 03/20/18 17:34 Dose: 25 mls/hr Sodium Chloride (Normal Saline) 1,000 mls @ 100 mls/hr IV ASDIRECTED [facility] Last Admin: 03/22/18 02:39 Dose: 100 mls/hr Ferric Sodium Gluconate Complex 250 mg/ Sodium Chloride 120 mls @ 50 mls/hr IV ONETIME ONE Stop: 03/20/18 15:23 Last Admin: 03/20/18 13:16 Dose: 50 mls/hr Potassium Chloride 20 meq/Lidocaine HCl 2 ml/ Sodium Chloride 112 mls @ 50 mls/ hr IV Q2H [facility] Stop: 03/21/18 16:59 Last Admin: 03/21/18 16:59 Dose: 50 mls/hr Lorazepam (Ativan) 0.5 mg IVPUSH ONETIME ONE Stop: 03/23/18 13:34 Last Admin: 03/23/18 14:16 Dose: 0.5 mg - Exam Quality Assessment: Reports: DVT Prophylaxis General: Reports: Alert, Oriented, Cooperative, Moderate Distress Lungs: Reports: Clear to Auscultation, Normal Respiratory Effort Cardiovascular: Reports: Regular Rate, Regular Rhythm GI/Abdominal Exam: Soft, No Organomegaly, Tender. No: Distended, Guarding, Rigid, Rebound Extremities: Non-Tender, Pedal Edema *Q Meaningful Use (DIS) - VTE *Q VTE Pharmacological Contraindications *Q: Thrombocytopenia
[2018-03-24] MEDS ORDERED: Furosemide 40 MG/4 ML VIAL IVPUSH ONE (13:00)
[2018-03-24] MEDS ORDERED: LORazepam 2 MG/ML SDV IVPUSH ONE (14:46)
== END 2018-03-24 15:04 | DRG 690 ==
LOC: JP.MS 12:44
PROVIDERS: ADMIT Internal Medicine; ATTEND Hospitalist
DX: N39.0 Urinary tract infection, site not specified (principal); R18.8 Other ascites; B96.1 Klebsiella pneumoniae [K. pneumoniae] as the cause of diseases classified elsewhere; K74.60 Unspecified cirrhosis of liver; K83.8 Other specified diseases of biliary tract; I12.9 Hypertensive chronic kidney disease with stage 1 through stage 4 chronic kidney disease, or unspecified chronic kidney disease; D69.6 Thrombocytopenia, unspecified; F17.210 Nicotine dependence, cigarettes, uncomplicated; N18.3 Chronic kidney disease, stage 3 (moderate); K76.0 Fatty (change of) liver, not elsewhere classified; Z98.84 Bariatric surgery status; N31.9 Neuromuscular dysfunction of bladder, unspecified; F10.11 Alcohol abuse, in remission; K59.09 Other constipation; Z86.73 Personal history of transient ischemic attack (TIA), and cerebral infarction without residual deficits; G89.4 Chronic pain syndrome; M19.90 Unspecified osteoarthritis, unspecified site; M54.9 Dorsalgia, unspecified; H54.7 Unspecified visual loss; K21.9 Gastro-esophageal reflux disease without esophagitis; Z90.5 Acquired absence of kidney; E61.1 Iron deficiency; Z88.2 Allergy status to sulfonamides; Z90.721 Acquired absence of ovaries, unilateral
CPT/HCPCS: 36415; 74176; 74181; 74181-26; 80048; 80053; 82728; 83550; 83735; 85025; 85027; 87086; 87088; 87186; A9270-GY; J1940; J2060; J2543; J2916; J3475; J3480; J7030

== ENCOUNTER 2020-01-16 14:31 | Emergency (ER) | payer MEDICARE, MEDICAID ==
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
[2020-01-16] MEDS ORDERED: Metoprolol Tartrate 50 MG Tab PO ONE (16:45)
[2020-01-16 16:55] VITALS: BP 180/90; PULSE 83
== END 2020-01-16 17:06 | disposition home or self-care (01) ==
LOC: JP.ED 14:31
DX: I47.1 Supraventricular tachycardia (principal); I44.7 Left bundle-branch block, unspecified; I10 Essential (primary) hypertension; K21.9 Gastro-esophageal reflux disease without esophagitis; F17.210 Nicotine dependence, cigarettes, uncomplicated; Z88.2 Allergy status to sulfonamides; Z79.899 Other long term (current) drug therapy
CPT/HCPCS: 36415; 80053; 84484; 85025; 99284; A9270

== ENCOUNTER 2020-10-03 23:19 | Emergency (ER) | payer MEDICARE, MEDICAID ==
[2020-10-03] MEDS ORDERED: Sodium Chloride 0.9% 1,000 ML IV SCH (23:45)
[2020-10-04] MEDS ORDERED: methylPREDNISolone Sodium Succinate 125 MG/2 ML SDV IVPUSH ONE (02:14)
[2020-10-04 02:23] VITALS: BP 172/85; PULSE 92
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
--- NOTE | 2020-10-05 09:17 | CR ---
CHEST: 2 view CLINICAL HISTORY:Dyspnea COMPARISON:13 FINDINGS: The heart size, pulmonary vascularity and hilar structures are normal. No infiltrate effusion or pneumothorax is seen. There is mild interstitial prominence which is likely chronic. IMPRESSION: No acute cardiopulmonary process
== END 2020-10-04 03:02 | disposition home or self-care (01) ==
LOC: JP.ED 23:19
DX: J44.9 Chronic obstructive pulmonary disease, unspecified (principal); N39.0 Urinary tract infection, site not specified; I12.9 Hypertensive chronic kidney disease with stage 1 through stage 4 chronic kidney disease, or unspecified chronic kidney disease; N18.4 Chronic kidney disease, stage 4 (severe); D63.1 Anemia in chronic kidney disease; R25.2 Cramp and spasm; E83.51 Hypocalcemia; K21.9 Gastro-esophageal reflux disease without esophagitis; Z79.899 Other long term (current) drug therapy; Z88.2 Allergy status to sulfonamides; Z86.73 Personal history of transient ischemic attack (TIA), and cerebral infarction without residual deficits; Z72.0 Tobacco use
CPT/HCPCS: 36415; 71046; 80053; 81001; 83735; 85025; 86140; 87086; 87088; 87186; 96374; 99285; J2930; J7030

== ENCOUNTER 2020-10-12 21:49 | Emergency (ER) | payer MEDICARE, MEDICAID ==
[2020-10-12] MEDS ORDERED: Sodium Chloride 0.9% 10 ML Syringe FLUSH PRN (22:41)
[2020-10-13 00:38] VITALS: BP 168/82; PULSE 78
[2020-10-13] MEDS ORDERED: Sodium Chloride 0.9% 1,000 ML IV SCH (00:45)
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
== END 2020-10-13 02:15 | disposition home or self-care (01) ==
LOC: JP.ED 21:49
DX: R25.2 Cramp and spasm (principal); E86.0 Dehydration; I12.9 Hypertensive chronic kidney disease with stage 1 through stage 4 chronic kidney disease, or unspecified chronic kidney disease; N18.4 Chronic kidney disease, stage 4 (severe); J44.9 Chronic obstructive pulmonary disease, unspecified; Z72.0 Tobacco use; Z86.73 Personal history of transient ischemic attack (TIA), and cerebral infarction without residual deficits; Z88.2 Allergy status to sulfonamides
CPT/HCPCS: 36415; 80053; 83735; 85025; 99283; J7030

== ENCOUNTER 2020-10-13 17:43 | Emergency (ER) | payer MEDICARE, MEDICAID ==
[2020-10-13] MEDS ORDERED: Sodium Chloride 0.9% 10 ML Syringe FLUSH PRN (19:19)
[2020-10-13] MEDS ORDERED: Sodium Chloride 0.9% 1,000 ML IV SCH (19:30)
[2020-10-13] MEDS ORDERED: Calcium Gluconate 10% 1 GM/10 ML SDV IVPUSH ONE (20:20)
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
[2020-10-13] MEDS ORDERED: Sodium Chloride 0.9% 100 ML ONE (20:42)
[2020-10-13] MEDS ORDERED: Calcium Gluconate 1 GM in Sodium Chloride 0.9% 100 ML IV ONE (20:45)
[2020-10-13 22:04] VITALS: BP 167/92; PULSE 79
== END 2020-10-13 23:41 ==
LOC: JP.ED 17:43
DX: R25.2 Cramp and spasm (principal); K70.30 Alcoholic cirrhosis of liver without ascites; I12.9 Hypertensive chronic kidney disease with stage 1 through stage 4 chronic kidney disease, or unspecified chronic kidney disease; N18.4 Chronic kidney disease, stage 4 (severe); E83.51 Hypocalcemia; E87.5 Hyperkalemia; J44.9 Chronic obstructive pulmonary disease, unspecified; E83.39 Other disorders of phosphorus metabolism; K21.9 Gastro-esophageal reflux disease without esophagitis; Z79.899 Other long term (current) drug therapy; Z86.73 Personal history of transient ischemic attack (TIA), and cerebral infarction without residual deficits; Z88.2 Allergy status to sulfonamides
CPT/HCPCS: 36415; 80053; 81003; 82140; 82550; 82803; 83735; 84100; 85025; 93005; 96365; 99285; J0610; J7030

== ENCOUNTER 2020-10-18 14:31 | Emergency (ER) | payer MEDICARE, MEDICAID ==
[2020-10-18 14:49] VITALS: BP 133/65; PULSE 82
[2020-10-18] MEDS ORDERED: Acetaminophen 500 MG Tab PO ONE (14:57)
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
== END 2020-10-18 15:46 | disposition home or self-care (01) ==
LOC: JP.ED 14:31
DX: G89.18 Other acute postprocedural pain (principal); R10.31 Right lower quadrant pain; J44.9 Chronic obstructive pulmonary disease, unspecified; I12.9 Hypertensive chronic kidney disease with stage 1 through stage 4 chronic kidney disease, or unspecified chronic kidney disease; N18.9 Chronic kidney disease, unspecified; Z72.0 Tobacco use; Z88.2 Allergy status to sulfonamides
CPT/HCPCS: 36415; 85027; 99284; A9270

== ENCOUNTER 2021-01-26 10:55 | Emergency (ER) | payer MEDICARE, MEDICAID ==
[2021-01-26] MEDS ORDERED: Ondansetron 4 MG/2 ML SDV IVPUSH ONE (11:34)
[2021-01-26] MEDS ORDERED: fentaNYL 100 MCG/2 ML SDV IVPUSH ONE (11:34)
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
[2021-01-26] MEDS: Sodium Chloride 0.9% 10 ML Syringe FLUSH PRN (12:14)
[2021-01-26] MEDS: Lactated Ringers 1,000 ML IV SCH ×2 (12:41→21:47)
[2021-01-26] MEDS ORDERED: HYDROmorphone 1 MG/ML Syringe IVPUSH ONE (13:33)
--- NOTE | 2021-01-26 13:44 | CRLCT ---
For Patients: As a result of the Century Cures Act, medical imaging exams and procedure reports are released immediately into your electronic medical record. You may view this report before your referring provider. If you have questions, please contact your health care provider. Indication: Generalized pain. Peritoneal dialysis. Technique: Multiple contiguous axial images were obtained from the lung bases to the symphysis pubis without intravenous contrast enhancement. Please note that all CT scans at this facility use dose modulation, iterative reconstruction, and/or weight-based dosing when appropriate to reduce radiation dose to as low as reasonably achievable. Comparison: January 07, 2021. Findings: Left basilar scar is identified. The heart is normal in size. No pericardial effusion is identified. Coronary artery calcifications are identified. The unenhanced liver, spleen, pancreas, and adrenals are grossly normal. No intrahepatic biliary ductal dilatation is identified. Postsurgical changes of right nephrectomy are identified. Atrophy of the left kidney is identified. Prominence of the left renal collecting system is identified. In the pelvis, thickening of the wall of the urinary bladder is identified. No uterus is identified. A small amount of ascites is identified. A peritoneal dialysis catheter is identified with the tip in the left lower quadrant. Fat stranding is identified within the peritoneum. This edema consistent with peritonitis. No free air is identified within the abdomen or pelvis. No definite abscess is identified. However, there is more free fluid in the right renal fossa than on the left. Impression: Findings most consistent with a nonspecific peritonitis, including fat stranding throughout the abdomen and pelvis. Free fluid is identified within the abdomen and pelvis. This has increased since the previous exam. Thickening of the wall of the bladder which may be reactive versus cystitis. Please note that all CT scans at this facility use dose modulation, iterative reconstruction, and/or weight-based dosing when appropriate to reduce radiation dose to as low as reasonably achievable. Dictated by Radha Bran MD @ 01/26/2021 1:42:42 PM (Electronically Signed)
[2021-01-26] MEDS ORDERED: Cefepime 1 GM in Sodium Chloride 0.9% 50 ML IV SCH (14:15)
[2021-01-26] MEDS ORDERED: metroNIDAZOLE/Normal Saline 500 MG in Premix Bag 1 BAG IV SCH (14:15)
[2021-01-26] MEDS ORDERED: Cefepime 1 GM in Sodium Chloride 0.9% 50 ML IV ONE (14:45)
[2021-01-26] MEDS ORDERED: metroNIDAZOLE/Normal Saline 500 MG in Premix Bag 1 BAG IV ONE (15:15)
[2021-01-26] MEDS: HYDROmorphone 0.5 MG/0.5 ML Syringe IVPUSH PRN ×3 (16:15→19:31)
[2021-01-26 16:32] LABS: CORONAVIRUS COVID-19 NAA NEGATIVE (NEGATIVE)
[2021-01-27] MEDS: metroNIDAZOLE/Normal Saline 500 MG in Premix Bag 1 BAG IV SCH ×4 (00:06→23:42)
[2021-01-27] MEDS: HYDROmorphone 0.5 MG/0.5 ML Syringe IVPUSH PRN ×11 (00:06→23:42)
[2021-01-27] MEDS: Lactated Ringers 1,000 ML IV SCH (05:40)
[2021-01-27] MEDS ORDERED: Polyethylene Glycol 3350 Powder 17 GM Packet PO PRN (07:33)
[2021-01-27] MEDS ORDERED: Acetaminophen/HYDROcodone 325-10 MG Tab PO PRN (07:33)
[2021-01-27] MEDS ORDERED: Albuterol/Ipratropium 3.0-0.5 MG/3 ML Neb Soln NEB ONE (07:40)
[2021-01-27] MEDS ORDERED: Non-Formulary Medication 1 Each (Gabapentin [Neurontin] 600 MG Tablet) PO SCH (09:00)
[2021-01-27] MEDS ORDERED: Non-Formulary Medication 1 Each (Cyanocobalamin/Fa/Pyridoxine [B Complex-Folic Acid] 1 EAC PO SCH (09:00)
[2021-01-27] MEDS ORDERED: Multivitamins with Iron/Calcium/Folic Acid/Minerals Tab PO SCH (09:00)
[2021-01-27] MEDS ORDERED: NIFEDIPINE 90 MG PO SCH (09:00)
[2021-01-27] MEDS ORDERED: Cholecalciferol (Vitamin D3) 25 MCG Tab PO SCH (09:00)
[2021-01-27] MEDS ORDERED: METOPROLOL TARTRATE 100 MG PO SCH (09:00)
[2021-01-27] MEDS ORDERED: Non-Formulary Medication 1 Each (Cholecalciferol (Vitamin D3) [Vitamin D3] 1,000 UNIT Caps PO SCH (09:00)
[2021-01-27] MEDS ORDERED: Bumetanide 1 MG Tab PO SCH (09:00)
[2021-01-27] MEDS ORDERED: NIFEdipine 30 MG Tab.ER PO SCH (09:00)
[2021-01-27] MEDS: Metoprolol Tartrate 25 MG Tab PO SCH ×2 (09:05→20:32)
[2021-01-27] MEDS: Gabapentin 300 MG Cap PO SCH ×2 (09:06→20:33)
[2021-01-27] MEDS: hydrALAZINE 25 MG Tab PO SCH ×3 (09:13→20:32)
[2021-01-27] MEDS: SEVELAMER HCL 800 MG PO SCH ×3 (11:18→16:53)
[2021-01-27] MEDS ORDERED: Sodium Polystyrene Sulfonate 15 GM/60 ML Susp 60 ML Bot PO ONE ×2 (14:15→17:02)
[2021-01-27] MEDS ORDERED: Cefepime 1 GM in Sodium Chloride 0.9% 50 ML IV SCH (15:00)
[2021-01-27] MEDS ORDERED: Vancomycin 1 GM SDV IV SCH (16:00)
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
[2021-01-27] MEDS: Sodium Chloride 0.9% 10 ML Syringe FLUSH PRN (23:43)
[2021-01-27 23:49] VITALS: BP 150/84; PULSE 71
[2021-01-28] MEDS: HYDROmorphone 0.5 MG/0.5 ML Syringe IVPUSH PRN (01:35)
== END 2021-01-28 03:44 ==
LOC: JP.ED 10:55
DX: K65.9 Peritonitis, unspecified (principal); I12.9 Hypertensive chronic kidney disease with stage 1 through stage 4 chronic kidney disease, or unspecified chronic kidney disease; N18.9 Chronic kidney disease, unspecified; J44.9 Chronic obstructive pulmonary disease, unspecified; Z86.73 Personal history of transient ischemic attack (TIA), and cerebral infarction without residual deficits; Z88.2 Allergy status to sulfonamides; Z99.2 Dependence on renal dialysis; Z72.0 Tobacco use; Z20.822 Contact with and (suspected) exposure to COVID-19
CPT/HCPCS: 0241U; 36415; 74176; 80048; 80053; 83605; 83690; 84145; 85025; 86140; 87040; 87070; 87077; 87186; 87205; 94640; 96365; 96366; 96367; 96375; 96376; 99285; A9270; J0692; J1170; J2405; J3010; J3370; J3490; J7050; J7120; J7620-GY

== ENCOUNTER 2023-01-01 15:47 | Emergency (ER) | payer MEDICARE, MEDICAID ==
[2023-01-01 16:55] LABS: BASE EXCESS VENOUS 3.6 mm/L; BASOPHILS ABSOLUTE AUTO 0.08 K/uL (0.00-0.10); EOSINOPHILS ABSOLUTE AUTO 0.09 K/uL (0.00-0.40); EOSINOPHILS PERCENT AUTO 1.1 % (0.0-5.4); HEMATOCRIT 32.2 % (34.3-46.0); HEMOGLOBIN 10.3 g/dL (11.2-15.5); IMMATURE GRAN ABSOLUTE AUTO 0.04 K/uL (0.00-0.23); IMMATURE GRAN PERCENT AUTO 0.5 % (0.0-0.7); LYMPHOCYTES ABSOLUTE AUTO 1.21 K/uL (0.8-3.3); LYMPHOCYTES PERCENT AUTO 15.3 % (11.4-47.7); METHEMOGLOBIN 1.9 %; MONOCYTES PERCENT AUTO 3.8 % (3.3-12.6); NEUTROPHILS ABSOLUTE AUTO 6.18 K/uL (1.0-7.6); NEUTROPHILS PERCENT AUTO 78.3 % (40.0-78.1); O2 SATURATION VENOUS 46.9; OXYHEMOGLOBIN 44.1 %; PCO2 VENOUS 44.2 mm/Hg; PH,VENOUS 7.418 (7.350-7.450); PLATELET COUNT,PLT 149 K/uL (130-375); RED BLOOD CELL COUNT 3.32 M/uL (3.77-5.24); TOTAL HEMOGLOBIN 10.7 g/dL (12.0-16.0); WHITE BLOOD CELL COUNT,WBC 7.9 K/uL (3.2-11.0)
[2023-01-01 16:58] LABS: PO2 VENOUS 29.1 mm/Hg
[2023-01-01 17:06] VITALS: BP 146/68; PULSE 98
[2023-01-01 17:25] LABS: CALCIUM 8.3 mg/dL (8.5-10.1); EST CRCL DRUG DOSING (CG) 7.09 mL/min; MAGNESIUM 2.2 mg/dL (1.8-2.4); POTASSIUM,K 5.2 mmol/L (3.6-5.2); TROPONIN I HIGH SENSITIVITY 25.1 pg/mL (<=60.3)
[2023-01-01 17:26] LABS: ANION GAP 17.2 mmol/L (5.0-14.0)
[2023-01-01 17:27] LABS: CREATININE 7.8 mg/dL (0.6-1.0)
[2023-01-01 17:33] LABS: CORONAVIRUS COVID-19 NAA NEGATIVE (NEGATIVE); INFLUENZA A NAA NEGATIVE (NEGATIVE); INFLUENZA B NAA NEGATIVE (NEGATIVE); RESPIRATORY SYNCYTIAL VIR NAA NEGATIVE (NEGATIVE)
== END 2023-01-01 18:35 | disposition home or self-care (01) ==
LOC: JP.ED 15:47
DX: I13.0 Hypertensive heart and chronic kidney disease with heart failure and stage 1 through stage 4 chronic kidney disease, or unspecified chronic kidney disease (principal); I50.32 Chronic diastolic (congestive) heart failure; N18.4 Chronic kidney disease, stage 4 (severe); D63.1 Anemia in chronic kidney disease; R09.02 Hypoxemia; J44.9 Chronic obstructive pulmonary disease, unspecified; K70.30 Alcoholic cirrhosis of liver without ascites; K21.9 Gastro-esophageal reflux disease without esophagitis; Z99.2 Dependence on renal dialysis; Z20.822 Contact with and (suspected) exposure to COVID-19; Z86.73 Personal history of transient ischemic attack (TIA), and cerebral infarction without residual deficits; Z94.0 Kidney transplant status; Z88.2 Allergy status to sulfonamides; Z79.899 Other long term (current) drug therapy
CPT/HCPCS: 0241U; 36415; 71045; 80048; 82803; 83735; 83880; 84100; 84484; 85025; 93005; 99285

== ENCOUNTER 2023-09-01 06:26 | Day surgery (SDC) | payer MEDICARE, MEDICAID ==
[2023-09-01] MEDS: Sodium Chloride 0.9% 1,000 ML IV SCH (07:14)
[2023-09-01] MEDS ORDERED: Propofol 200 MG/20 ML SDV ONE (07:15)
[2023-09-01] MEDS ORDERED: fentaNYL 100 MCG/2 ML SDV ONE (07:15)
[2023-09-01 09:33] VITALS: BP 144/77; PULSE 90
== END 2023-09-01 09:34 | disposition home or self-care (01) ==
LOC: JP.SDS 06:26
PROVIDERS: ATTEND Surgery
DX: Z12.11 Encounter for screening for malignant neoplasm of colon (principal); K57.30 Diverticulosis of large intestine without perforation or abscess without bleeding; E87.6 Hypokalemia; I13.0 Hypertensive heart and chronic kidney disease with heart failure and stage 1 through stage 4 chronic kidney disease, or unspecified chronic kidney disease; N18.4 Chronic kidney disease, stage 4 (severe); I50.9 Heart failure, unspecified; F32.A Depression, unspecified; F17.200 Nicotine dependence, unspecified, uncomplicated; Z88.2 Allergy status to sulfonamides
CPT/HCPCS: 36415; 84132; G0121; J2704; J3010; J7030

== ENCOUNTER 2023-11-23 06:15 | Day surgery (SDC) | payer MEDICARE, MEDICAID ==
[2023-11-23] MEDS ORDERED: Midazolam 1 MG/ML 2 ML SDV ONE (06:54)
[2023-11-23] MEDS ORDERED: fentaNYL 50 MCG/ML SDV ONE (06:54)
[2023-11-23] MEDS ORDERED: Propofol 200 MG/20 ML SDV ONE (06:54)
[2023-11-23] MEDS: Lactated Ringers 1,000 ML IV SCH (06:55)
[2023-11-23 09:50] VITALS: BP 136/70; PULSE 99
== END 2023-11-23 10:00 | disposition home or self-care (01) ==
LOC: JP.SDS 06:15
PROVIDERS: ATTEND Family Medicine
DX: Z12.11 Encounter for screening for malignant neoplasm of colon (principal); K64.8 Other hemorrhoids; K57.30 Diverticulosis of large intestine without perforation or abscess without bleeding; I13.0 Hypertensive heart and chronic kidney disease with heart failure and stage 1 through stage 4 chronic kidney disease, or unspecified chronic kidney disease; N18.9 Chronic kidney disease, unspecified; I50.9 Heart failure, unspecified; F17.210 Nicotine dependence, cigarettes, uncomplicated
CPT/HCPCS: 36415; 84132; G0121; J2250; J2704; J3010; J7120

== ENCOUNTER 2024-03-27 12:00 | Emergency (ER) | payer MEDICARE, MEDICAID ==
[2024-03-27 12:22] LABS: BASOPHILS ABSOLUTE AUTO 0.08 K/uL (0.00-0.10); BASOPHILS PERCENT AUTO 0.7 % (0.1-1.3); EOSINOPHILS PERCENT AUTO 0.2 % (0.0-5.4); HEMATOCRIT 36.6 % (34.3-46.0); HEMOGLOBIN 11.7 g/dL (11.2-15.5); IMMATURE GRAN ABSOLUTE AUTO 0.04 K/uL (0.00-0.23); IMMATURE GRAN PERCENT AUTO 0.4 % (0.0-0.7); LYMPHOCYTES ABSOLUTE AUTO 1.23 K/uL (0.8-3.3); LYMPHOCYTES PERCENT AUTO 11.5 % (11.4-47.7); MEAN CORPUSCULAR HEMOGLOBIN 30.3 pg (31.6-35.5); MEAN CORPUSCULAR VOLUME 94.8 fL (81.4-99.0); MONOCYTES ABSOLUTE AUTO 0.29 K/uL (0.20-0.90); MONOCYTES PERCENT AUTO 2.7 % (3.3-12.6); NEUTROPHILS ABSOLUTE AUTO 9.06 K/uL (1.0-7.6); NEUTROPHILS PERCENT AUTO 84.5 % (40.0-78.1); PLATELET COUNT,PLT 236 K/uL (130-375); RED BLOOD CELL COUNT 3.86 M/uL (3.77-5.24); WHITE BLOOD CELL COUNT,WBC 10.7 K/uL (3.2-11.0)
[2024-03-27 12:24] LABS: EOSINOPHILS ABSOLUTE AUTO 0.02 K/uL (0.00-0.40)
[2024-03-27] MEDS: Albuterol/Ipratropium 3.0-0.5 MG/3 ML Neb Soln NEB ONE (12:34)
[2024-03-27] MEDS: Sodium Chloride 0.9% 1,000 ML IV ONE (12:35)
[2024-03-27] MEDS: methylPREDNISolone Sod Succ 250 MG in Dextrose 5% in Water 100 ML IV ONE (12:40)
[2024-03-27] MEDS: Magnesium Sulfate/Water Premix 2 GM in Premix Bag 1 BAG IV ONE (12:40)
[2024-03-27 12:42] LABS: A/G RATIO 0.7 (1.2-2.2); ALANINE AMINOTRANSFERASE,ALT 13 U/L (12-78); ALBUMIN 3.2 g/dL (3.4-5.0); ALKALINE PHOSPHATASE 100 U/L (46-116); ASPARTATE AMNIOTRANSFERASE,AST 14 U/L (15-37); BILIRUBIN TOTAL 0.8 mg/dL (0.2-1.0); BLOOD UREA NITROGEN,BUN 73 mg/dL (7-18); CALCIUM 8.5 mg/dL (8.5-10.1); CARBON DIOXIDE,CO2 21 mmol/L (21-32); CHLORIDE,CL 100 mmol/L (100-108); EST CRCL DRUG DOSING (CG) 5.69 mL/min; ESTIMATED GFR 4 mL/min (>60); GLUCOSE RANDOM 155 mg/dL (74-106); PROTEIN TOTAL,TP 8.1 g/dL (6.4-8.2); SODIUM,NA 137 mmol/L (140-148); TROPONIN I HIGH SENSITIVITY 29.4 pg/mL (<=60.3)
[2024-03-27 12:44] LABS: ANION GAP 22.5 mmol/L (5.0-14.0); POTASSIUM,K 6.5 mmol/L (3.6-5.2)
[2024-03-27 12:45] LABS: CREATININE 9.6 mg/dL (0.6-1.0)
[2024-03-27] MEDS ORDERED: 50% Dextrose in Water 50 ML Syringe IVPUSH PRN (12:49)
[2024-03-27] MEDS ORDERED: Glucagon,Human Recombinant 1 MG Vial IM PRN (12:49)
[2024-03-27 12:56] LABS: CORONAVIRUS COVID-19 NAA NEGATIVE (NEGATIVE); INFLUENZA A NAA POSITIVE (NEGATIVE); INFLUENZA B NAA NEGATIVE (NEGATIVE); RESPIRATORY SYNCYTIAL VIR NAA NEGATIVE (NEGATIVE)
[2024-03-27] MEDS: Insulin Regular, Human 100 Units/ML 3 ML Vial IVPUSH ONE (13:02)
[2024-03-27 13:13] LABS: PRO B-TYPE NATRIUR PEPT,BNPPRO 127162 pg/mL (5-125)
[2024-03-27 13:36] LABS: BICARBONATE,ARTERIAL 16.5 mmol/L (22.0-26.0); CARBOXYHEMOGLOBIN 2.9 % (0.0-1.6); METHEMOGLOBIN 1.9 %; O2 SATURATION ARTERIAL 94.1 % (95.0-98.0); OXYHEMOGLOBIN 89.6 %; PCO2 ARTERIAL 31.8 mmHg (35.0-42.0); PO2 ARTERIAL 80.9 mmHg (75.0-100.0); TOTAL HEMOGLOBIN 11.2 g/dL (12.0-16.0)
[2024-03-27 13:43] LABS: APPEARANCE,URINE TURBID (CLEAR); BILIRUBIN,URINE NEGATIVE (NEGATIVE); COLOR,URINE YELLOW (YELLOW); GLUCOSE,URINE NEGATIVE (NEGATIVE); KETONES,URINE NEGATIVE (NEGATIVE); LEUKOCYTE ESTERASE,URINE LARGE (NEGATIVE); NITRITE,URINE NEGATIVE (NEGATIVE); OCCULT BLOOD,URINE LARGE (NEGATIVE); PROTEIN,URINE >=300 mg/dL (NEGATIVE); UROBILINOGEN,URINE 0.2 EU/dL (0.2-1.0)
[2024-03-27 13:48] LABS: AMORPHOUS SEDIMENT,URINE NOT SEEN; BACTERIA,URINE MANY; EPITHELIAL CELLS,URINE NOT SEEN; MUCUS,URINE NOT SEEN; RBC,URINE PACKED (0-5); WBC,URINE PACKED (0-5)
[2024-03-27] MEDS: Levofloxacin/Dextrose 5%-Water 500 MG in Premix Bag 1 BAG IV ONE (14:19)
[2024-03-27 15:04] VITALS: BP 155/65; PULSE 74
== END 2024-03-27 16:15 ==
LOC: JP.ED 12:00
DX: I13.0 Hypertensive heart and chronic kidney disease with heart failure and stage 1 through stage 4 chronic kidney disease, or unspecified chronic kidney disease (principal); I50.9 Heart failure, unspecified; N18.9 Chronic kidney disease, unspecified; J11.1 Influenza due to unidentified influenza virus with other respiratory manifestations; N39.0 Urinary tract infection, site not specified; J44.9 Chronic obstructive pulmonary disease, unspecified; K21.9 Gastro-esophageal reflux disease without esophagitis; M19.90 Unspecified osteoarthritis, unspecified site; F17.210 Nicotine dependence, cigarettes, uncomplicated; Z86.73 Personal history of transient ischemic attack (TIA), and cerebral infarction without residual deficits; Z90.49 Acquired absence of other specified parts of digestive tract; Z98.84 Bariatric surgery status; Z88.2 Allergy status to sulfonamides; Z88.8 Allergy status to other drugs, medicaments and biological substances; Z79.51 Long term (current) use of inhaled steroids; Z79.82 Long term (current) use of aspirin; Z79.899 Other long term (current) drug therapy; Z99.2 Dependence on renal dialysis
CPT/HCPCS: 0241U; 36415; 36600; 51702; 71045; 80053; 81001; 82803; 83605; 83735; 83880; 84145; 84484; 85025; 87086; 93005; 94640; 94660; 96361; 96365; 96366; 96367; 96368; 99285; J1815; J1956; J2919; J3475; J7030; J7620

== ENCOUNTER 2024-04-13 14:24 | Emergency (ER) | payer MEDICARE, MEDICAID ==
[2024-04-13 14:56] LABS: BASOPHILS ABSOLUTE AUTO 0.05 K/uL (0.00-0.10); BASOPHILS PERCENT AUTO 0.4 % (0.1-1.3); EOSINOPHILS PERCENT AUTO 0.2 % (0.0-5.4); IMMATURE GRAN ABSOLUTE AUTO 0.06 K/uL (0.00-0.23); IMMATURE GRAN PERCENT AUTO 0.5 % (0.0-0.7); LYMPHOCYTES PERCENT AUTO 7.8 % (11.4-47.7); MEAN CORPUSCULAR HEMOGLOBIN 30.6 pg (31.6-35.5); MEAN CORPUSCULAR HGB CONC 31.4 g/dL (31.6-35.5); MEAN CORPUSCULAR VOLUME 97.5 fL (81.4-99.0); MONOCYTES ABSOLUTE AUTO 0.63 K/uL (0.20-0.90); MONOCYTES PERCENT AUTO 5.5 % (3.3-12.6); NEUTROPHILS ABSOLUTE AUTO 9.81 K/uL (1.0-7.6); NEUTROPHILS PERCENT AUTO 85.6 % (40.0-78.1); PLATELET COUNT,PLT 210 K/uL (130-375); RED BLOOD CELL COUNT 3.59 M/uL (3.77-5.24); WHITE BLOOD CELL COUNT,WBC 11.5 K/uL (3.2-11.0)
[2024-04-13 15:00] LABS: EOSINOPHILS ABSOLUTE AUTO 0.02 K/uL (0.00-0.40)
[2024-04-13] MEDS: Albuterol/Ipratropium 3.0-0.5 MG/3 ML Neb Soln NEB ONE (15:00)
[2024-04-13 15:09] LABS: BICARBONATE,ARTERIAL 29.7 mmol/L (22.0-26.0); METHEMOGLOBIN 0.9 %; O2 SATURATION ARTERIAL 85.7 % (95.0-98.0); OXYHEMOGLOBIN 81.5 %; PCO2 ARTERIAL 39.2 mmHg (35.0-42.0); PO2 ARTERIAL 51.7 mmHg (75.0-100.0)
[2024-04-13 15:11] LABS: BASE EXCESS ARTERIAL 6.2 mm/L
[2024-04-13 15:12] LABS: TOTAL HEMOGLOBIN 10.5 g/dL (12.0-16.0)
[2024-04-13 15:24] LABS: A/G RATIO 0.6 (1.2-2.2); ALANINE AMINOTRANSFERASE,ALT 11 U/L (12-78); ALBUMIN 2.8 g/dL (3.4-5.0); ALKALINE PHOSPHATASE 87 U/L (46-116); ASPARTATE AMNIOTRANSFERASE,AST 17 U/L (15-37); BILIRUBIN TOTAL 0.8 mg/dL (0.2-1.0); BLOOD UREA NITROGEN,BUN 31 mg/dL (7-18); CARBON DIOXIDE,CO2 31 mmol/L (21-32); CHLORIDE,CL 95 mmol/L (100-108); EST CRCL DRUG DOSING (CG) 9.93 mL/min; ESTIMATED GFR 8 mL/min (>60); GLUCOSE RANDOM 99 mg/dL (74-106); POTASSIUM,K 4.6 mmol/L (3.6-5.2); PROTEIN TOTAL,TP 7.8 g/dL (6.4-8.2); SODIUM,NA 136 mmol/L (140-148)
[2024-04-13 15:25] LABS: ANION GAP 14.6 mmol/L (5.0-14.0); CREATININE 5.5 mg/dL (0.6-1.0)
[2024-04-13 15:50] LABS: PHOSPHORUS 6.3 mg/dL (2.5-4.9)
[2024-04-13 16:14] LABS: CORONAVIRUS COVID-19 NAA NEGATIVE (NEGATIVE); INFLUENZA A NAA NEGATIVE (NEGATIVE); INFLUENZA B NAA NEGATIVE (NEGATIVE); RESPIRATORY SYNCYTIAL VIR NAA NEGATIVE (NEGATIVE)
[2024-04-13] MEDS: Sodium Chloride 0.9% 250 ML IV SCH ×2 (16:29→19:36)
[2024-04-13] MEDS: Sodium Chloride 0.9% 80 ML IV SCH (17:18)
[2024-04-13] MEDS: Iopamidol 755 Mg/ML 100 ML Bottle IV SCH (17:18)
[2024-04-13] MEDS: Levofloxacin/Dextrose 5%-Water 750 MG in Premix Bag 1 BAG IV ONE (17:23)
[2024-04-13 19:16] VITALS: BP 146/75; PULSE 105
== END 2024-04-13 22:31 | disposition home or self-care (01) ==
LOC: JP.ED 14:24
DX: J18.9 Pneumonia, unspecified organism (principal); I12.9 Hypertensive chronic kidney disease with stage 1 through stage 4 chronic kidney disease, or unspecified chronic kidney disease; N18.9 Chronic kidney disease, unspecified; J44.9 Chronic obstructive pulmonary disease, unspecified; K21.9 Gastro-esophageal reflux disease without esophagitis; M19.90 Unspecified osteoarthritis, unspecified site; F17.200 Nicotine dependence, unspecified, uncomplicated; Z86.73 Personal history of transient ischemic attack (TIA), and cerebral infarction without residual deficits; Z90.49 Acquired absence of other specified parts of digestive tract; Z98.84 Bariatric surgery status; Z88.2 Allergy status to sulfonamides; Z88.8 Allergy status to other drugs, medicaments and biological substances; Z79.51 Long term (current) use of inhaled steroids; Z79.82 Long term (current) use of aspirin; Z79.899 Other long term (current) drug therapy
CPT/HCPCS: 0241U; 36415; 36600; 71046; 71046-26; 71275; 71275-26; 80053; 82803; 83605; 83735; 84100; 84145; 84484; 85025; 85379; 87040; 93005; 93010; 96361; 96365; 96366; 99284; 99285-25; J1956; J7620; Q9967

== ENCOUNTER 2024-06-20 13:52 | Emergency (ER) | payer MEDICARE, MEDICAID ==
[2024-06-20 14:07] LABS: BASOPHILS ABSOLUTE AUTO 0.04 K/uL (0.00-0.10); BASOPHILS PERCENT AUTO 0.7 % (0.1-1.3); EOSINOPHILS PERCENT AUTO 0.3 % (0.0-5.4); HEMATOCRIT 33.4 % (34.3-46.0); HEMOGLOBIN 10.3 g/dL (11.2-15.5); IMMATURE GRAN ABSOLUTE AUTO 0.07 K/uL (0.00-0.23); IMMATURE GRAN PERCENT AUTO 1.2 % (0.0-0.7); LYMPHOCYTES ABSOLUTE AUTO 0.71 K/uL (0.8-3.3); LYMPHOCYTES PERCENT AUTO 11.7 % (11.4-47.7); MEAN CORPUSCULAR HEMOGLOBIN 29.3 pg (31.6-35.5); MEAN CORPUSCULAR HGB CONC 30.8 g/dL (31.6-35.5); MEAN CORPUSCULAR VOLUME 95.2 fL (81.4-99.0); MONOCYTES ABSOLUTE AUTO 0.24 K/uL (0.20-0.90); MONOCYTES PERCENT AUTO 3.9 % (3.3-12.6); NEUTROPHILS PERCENT AUTO 82.2 % (40.0-78.1); PLATELET COUNT,PLT 257 K/uL (130-375); RED BLOOD CELL COUNT 3.51 M/uL (3.77-5.24); WHITE BLOOD CELL COUNT,WBC 6.1 K/uL (3.2-11.0)
[2024-06-20 14:12] LABS: EOSINOPHILS ABSOLUTE AUTO 0.02 K/uL (0.00-0.40)
[2024-06-20] MEDS: Furosemide 40 MG/4 ML VIAL IVPUSH ONE (14:15)
[2024-06-20] MEDS: fentaNYL 50 MCG/ML SDV IVPUSH ONE (14:26)
[2024-06-20] MEDS: Levofloxacin/Dextrose 5%-Water 500 MG in Premix Bag 1 BAG IV ONE (14:37)
[2024-06-20] MEDS: cefTRIAXone 1 GM in Sodium Chloride 0.9% 50 ML IV ONE (14:37)
[2024-06-20 14:48] LABS: A/G RATIO 0.7 (1.2-2.2); ALANINE AMINOTRANSFERASE,ALT 16 U/L (12-78); ALBUMIN 2.6 g/dL (3.4-5.0); ALKALINE PHOSPHATASE 96 U/L (46-116); ANION GAP 17.9 mmol/L (5.0-14.0); ASPARTATE AMNIOTRANSFERASE,AST 15 U/L (15-37); BILIRUBIN TOTAL 0.4 mg/dL (0.2-1.0); BLOOD UREA NITROGEN,BUN 52 mg/dL (7-18); CALCIUM 7.6 mg/dL (8.5-10.1); CARBON DIOXIDE,CO2 28 mmol/L (21-32); CHLORIDE,CL 96 mmol/L (100-108); EST CRCL DRUG DOSING (CG) 7.93 mL/min; ESTIMATED GFR 6 mL/min (>60); GLUCOSE RANDOM 100 mg/dL (74-106); POTASSIUM,K 4.9 mmol/L (3.6-5.2); PROTEIN TOTAL,TP 6.5 g/dL (6.4-8.2); SODIUM,NA 137 mmol/L (140-148)
[2024-06-20 14:49] LABS: CREATININE 6.8 mg/dL (0.6-1.0)
[2024-06-20 15:00] LABS: APPEARANCE,URINE TURBID (CLEAR); BILIRUBIN,URINE NEGATIVE (NEGATIVE); COLOR,URINE YELLOW (YELLOW); GLUCOSE,URINE NEGATIVE (NEGATIVE); KETONES,URINE NEGATIVE (NEGATIVE); LEUKOCYTE ESTERASE,URINE LARGE (NEGATIVE); NITRITE,URINE NEGATIVE (NEGATIVE); OCCULT BLOOD,URINE SMALL (NEGATIVE); PROTEIN,URINE 100 mg/dL (NEGATIVE); UROBILINOGEN,URINE 0.2 EU/dL (0.2-1.0)
[2024-06-20] MEDS: methylPREDNISolone Sodium Succinate 125 MG/2 ML SDV IVPUSH ONE (15:01)
[2024-06-20 15:06] LABS: AMORPHOUS SEDIMENT,URINE NOT SEEN; BACTERIA,URINE MANY; EPITHELIAL CELLS,URINE MODERATE; MUCUS,URINE NOT SEEN; WBC,URINE PACKED (0-5)
[2024-06-20] MEDS: Albuterol/Ipratropium 3.0-0.5 MG/3 ML Neb Soln NEB ONE (16:17)
[2024-06-20 17:07] VITALS: BP 139/82; PULSE 111
== END 2024-06-20 17:21 | disposition other institution (70) ==
LOC: JP.ED 13:52
DX: J18.9 Pneumonia, unspecified organism (principal); J44.1 Chronic obstructive pulmonary disease with (acute) exacerbation; N18.4 Chronic kidney disease, stage 4 (severe); N31.2 Flaccid neuropathic bladder, not elsewhere classified; I10 Essential (primary) hypertension; K21.9 Gastro-esophageal reflux disease without esophagitis; Z88.8 Allergy status to other drugs, medicaments and biological substances; Z88.2 Allergy status to sulfonamides; Z79.82 Long term (current) use of aspirin; Z79.899 Other long term (current) drug therapy; Z90.49 Acquired absence of other specified parts of digestive tract; Z90.89 Acquired absence of other organs
CPT/HCPCS: 36415; 51702; 71045; 80053; 81001; 83605; 85025; 96365; 96367; 96375; 99285; A9270; J0696; J1956; J2919; J3010; J1938

== ENCOUNTER 2024-11-29 06:19 | Emergency (ER) | payer MEDICARE, MEDICAID ==
[2024-11-29 06:35] LABS: BASE EXCESS VENOUS 6.2 mm/L; BICARBONATE,VENOUS 30.7 mmol/L; O2 SATURATION VENOUS 57.7; OXYHEMOGLOBIN 54.6 %; PCO2 VENOUS 47.5 mm/Hg; PH,VENOUS 7.427 (7.350-7.450); TOTAL HEMOGLOBIN 7.4 g/dL (12.0-16.0)
[2024-11-29 06:37] LABS: PO2 VENOUS 32.0 mm/Hg
[2024-11-29 06:43] LABS: BASOPHILS PERCENT AUTO 0.4 % (0.1-1.3); EOSINOPHILS ABSOLUTE AUTO 0.19 K/uL (0.00-0.40); EOSINOPHILS PERCENT AUTO 3.5 % (0.0-5.4); IMMATURE GRAN ABSOLUTE AUTO 0.04 K/uL (0.00-0.23); IMMATURE GRAN PERCENT AUTO 0.7 % (0.0-0.7); LYMPHOCYTES ABSOLUTE AUTO 0.42 K/uL (0.8-3.3); LYMPHOCYTES PERCENT AUTO 7.7 % (11.4-47.7); MONOCYTES ABSOLUTE AUTO 0.27 K/uL (0.20-0.90); MONOCYTES PERCENT AUTO 4.9 % (3.3-12.6); NEUTROPHILS ABSOLUTE AUTO 4.55 K/uL (1.0-7.6); NEUTROPHILS PERCENT AUTO 82.8 % (40.0-78.1); PLATELET COUNT,PLT 146 K/uL (130-375); RED BLOOD CELL COUNT 2.22 M/uL (3.77-5.24); WHITE BLOOD CELL COUNT,WBC 5.5 K/uL (3.2-11.0)
[2024-11-29 06:59] LABS: BASOPHILS ABSOLUTE AUTO 0.02 K/uL (0.00-0.10)
[2024-11-29 07:08] LABS: A/G RATIO 0.5 (1.2-2.2); ALANINE AMINOTRANSFERASE,ALT 10 U/L (12-78); ASPARTATE AMNIOTRANSFERASE,AST 22 U/L (15-37); BILIRUBIN TOTAL 0.9 mg/dL (0.2-1.0); BLOOD UREA NITROGEN,BUN 52 mg/dL (7-18); CARBON DIOXIDE,CO2 30 mmol/L (21-32); CHLORIDE,CL 85 mmol/L (100-108); EST CRCL DRUG DOSING (CG) 11.47 mL/min; ESTIMATED GFR 10 mL/min (>60); GLUCOSE RANDOM 118 mg/dL (74-106); POTASSIUM,K 5.8 mmol/L (3.6-5.2); PROTEIN TOTAL,TP 7.0 g/dL (6.4-8.2)
[2024-11-29 07:15] LABS: CREATININE 4.7 mg/dL (0.6-1.0); SODIUM,NA 119 mmol/L (140-148)
[2024-11-29] MEDS: Bumetanide 2.5 MG/10 ML MDV IVPUSH ONE (08:41)
[2024-11-29 10:13] VITALS: BP 153/69; PULSE 85
== END 2024-11-29 10:25 ==
LOC: JP.ED 06:19
DX: I13.0 Hypertensive heart and chronic kidney disease with heart failure and stage 1 through stage 4 chronic kidney disease, or unspecified chronic kidney disease (principal); I50.9 Heart failure, unspecified; N18.4 Chronic kidney disease, stage 4 (severe); D63.1 Anemia in chronic kidney disease; E87.1 Hypo-osmolality and hyponatremia; R79.1 Abnormal coagulation profile; J44.9 Chronic obstructive pulmonary disease, unspecified; M19.90 Unspecified osteoarthritis, unspecified site; Z98.84 Bariatric surgery status; Z90.49 Acquired absence of other specified parts of digestive tract; Z88.2 Allergy status to sulfonamides; Z88.8 Allergy status to other drugs, medicaments and biological substances; Z79.82 Long term (current) use of aspirin; Z79.899 Other long term (current) drug therapy
CPT/HCPCS: 36415; 51702; 71045; 80053; 82803; 83605; 83880; 84484; 85025; 85379; 93005; 93010; 93971; 96374; 99285; J1939

== ENCOUNTER 2025-02-27 23:25 | Emergency (ER) | payer MEDICARE ==
[2025-02-28] MEDS: Bumetanide 2.5 MG/10 ML MDV IVPUSH ONE (00:13)
[2025-02-28 00:22] LABS: BASE EXCESS VENOUS 7.9 mm/L; BICARBONATE,VENOUS 33.4 mmol/L; O2 SATURATION VENOUS 63.8; OXYHEMOGLOBIN 60.4 %; PCO2 VENOUS 54.5 mm/Hg; PH,VENOUS 7.404 (7.350-7.450); TOTAL HEMOGLOBIN 9.8 g/dL (12.0-16.0)
[2025-02-28 00:24] LABS: PO2 VENOUS 35.5 mm/Hg
[2025-02-28 00:43] LABS: BLOOD UREA NITROGEN,BUN 65 mg/dL (7-18); CARBON DIOXIDE,CO2 33 mmol/L (21-32); CHLORIDE,CL 92 mmol/L (100-108); ESTIMATED GFR 13 mL/min (>60); GLUCOSE RANDOM 97 mg/dL (74-106); SODIUM,NA 127 mmol/L (140-148)
[2025-02-28 00:52] LABS: CREATININE 3.8 mg/dL (0.6-1.0); POTASSIUM,K 6.3 mmol/L (3.6-5.2)
[2025-02-28] MEDS ORDERED: 50% Dextrose in Water 50 ML Syringe IVPUSH PRN (01:15)
[2025-02-28] MEDS: Albuterol 0.083% 2.5 MG/3 ML Neb Soln NEB ONE (01:43)
[2025-02-28] MEDS: Calcium Gluconate 10% 1 GM/10 ML SDV IVPUSH ONE (01:46)
[2025-02-28] MEDS: 50% Dextrose in Water 50 ML Syringe IVPUSH ONE (01:50)
[2025-02-28] MEDS: Insulin Regular, Human 100 Units/ML 10 ML Vial IVPUSH ONE (01:56)
[2025-02-28 03:22] VITALS: BP 131/81; PULSE 121
== END 2025-02-28 03:14 ==
LOC: JP.ED 23:25
DX: E87.5 Hyperkalemia (principal); N28.9 Disorder of kidney and ureter, unspecified; J44.9 Chronic obstructive pulmonary disease, unspecified; I12.0 Hypertensive chronic kidney disease with stage 5 chronic kidney disease or end stage renal disease; N18.6 End stage renal disease; Z99.2 Dependence on renal dialysis; Z86.73 Personal history of transient ischemic attack (TIA), and cerebral infarction without residual deficits; Z87.891 Personal history of nicotine dependence; Z88.2 Allergy status to sulfonamides; Z88.8 Allergy status to other drugs, medicaments and biological substances; Z79.899 Other long term (current) drug therapy; Z79.82 Long term (current) use of aspirin
CPT/HCPCS: 36415; 80048; 82803; 85014; 85018; 96374; 96375; 99285; A9270; J0612; 99284; J1171; J1939; J3490